=== PATIENT | female | born 1955 | race Caucasian/White ===

== ENCOUNTER → 2017-03-28 | Outpatient (CLI) | payer OTHER ==
[2017-03-28 08:42] LABS: ALT 35 U/L (9-52); AST 39 U/L (14-36); Alkaline Phosphatase 104 U/L (38-126); Anion Gap 8 mmol/L; Blood Urea Nitrogen 18 mg/dL (7-17); Calcium 9.1 mg/dL (8.4-10.2); Carbon Dioxide 26 mmol/L (22-30); Chloride 110 mmol/L (98-107); Cholesterol 136 mg/dL (<200); Glucose 102 mg/dL (74-99); HDL Cholesterol 44 mg/dL (40-60); Non-African American GFR(MDRD) >60 (>60 ml/min/1.73 sqM); Potassium 4.6 mmol/L (3.5-5.1); Sodium 144 mmol/L (137-145); Total Bilirubin 0.6 mg/dL (0.2-1.3); Total Protein 7.3 g/dL (6.3-8.2); Triglycerides 75 mg/dL (<150)
[2017-03-28 09:27] LABS: Basophils # (A) 0.1 k/uL (0-0.2); Basophils % (A) 1 %; CH 31.1; Eosinophils # (A) 0.3 k/uL (0-0.7); Eosinophils % (A) 5 %; HCT 42.8 % (34.0-46.0); HDW 2.91; HGB 14.7 gm/dL (11.4-16.0); Luc # (Auto) 0.24; Luc % (Auto) 4; Lymphocytes # (A) 0.9 k/uL (1.0-4.8); Lymphocytes % (A) 15 %; MCH 30.7 pg (25.0-35.0); MCHC 34.3 g/dL (31.0-37.0); MCV 89.4 fL (80.0-100.0); Mean Platelet Volume 7.4; Monocytes # (A) 0.5 k/uL (0-1.0); Monocytes % (A) 9 %; Neutrophils # (A) 3.8 k/uL (1.3-7.7); Neutrophils % (A) 65 %; RBC 4.79 m/uL (3.80-5.40); RDW 13.2 % (11.5-15.5); WBC 5.8 k/uL (3.8-10.6); WBC (Perox) 5.89
== END | disposition home or self-care (01) ==
LOC: LABWHC1 08:04
PROVIDERS: ATTEND Internal Medicine
DX: Z00.00 Encounter for general adult medical examination without abnormal findings (principal); D86.0 Sarcoidosis of lung; I10 Essential (primary) hypertension; K21.9 Gastro-esophageal reflux disease without esophagitis; R05 Cough; Z80.0 Family history of malignant neoplasm of digestive organs
CPT/HCPCS: 36415; 80053; 80061; 84439; 84443; 85025

== ENCOUNTER → 2017-12-06 | Outpatient (CLI) | payer OTHER ==
--- NOTE | 2017-12-10 09:01 | MM ---
Reason for exam: screening (asymptomatic). Last mammogram was performed 1 year and 1 month ago. History: Patient is postmenopausal. Physical Findings: A clinical breast exam by your physician is recommended on an annual basis and results should be correlated with mammographic findings. MG Screening Mammo w CAD Bilateral CC and MLO view(s) were taken. Prior study comparison: November 12, 2016, bilateral MG screening mammo w CAD. November 08, 2015, bilateral MG 3d screening mammo w/cad. The breast tissue is almost entirely fat. No significant changes when compared with prior studies. ASSESSMENT: Negative, BI-RAD 1 RECOMMENDATION: Routine screening mammogram of both breasts in 1 year.
== END | disposition home or self-care (01) ==
LOC: RADMAMWWP 14:24
PROVIDERS: ATTEND Internal Medicine
DX: Z12.31 Encounter for screening mammogram for malignant neoplasm of breast (principal)
CPT/HCPCS: 77067

== ENCOUNTER → 2018-04-07 | Outpatient (CLI) | payer OTHER ==
[2018-04-07 07:37] LABS: Basophils % (A) 1 %; Eosinophils # (A) 0.4 k/uL (0-0.7); Eosinophils % (A) 6 %; HCT 41.2 % (34.0-46.0); HGB 14.6 gm/dL (11.4-16.0); Lymphocytes # (A) 0.7 k/uL (1.0-4.8); Lymphocytes % (A) 10 %; MCH 30.9 pg (25.0-35.0); MCHC 35.4 g/dL (31.0-37.0); MCV 87.3 fL (80.0-100.0); Mean Platelet Volume 7.1; Monocytes # (A) 0.5 k/uL (0-1.0); Monocytes % (A) 8 %; Neutrophils # (A) 4.9 k/uL (1.3-7.7); Neutrophils % (A) 72 %; Platelet Count 205 k/uL (150-450); RBC 4.72 m/uL (3.80-5.40); RDW 13.3 % (11.5-15.5); WBC 6.8 k/uL (3.8-10.6)
[2018-04-07 07:59] LABS: ALT 36 U/L (9-52); AST 33 U/L (14-36); Alkaline Phosphatase 110 U/L (38-126); Anion Gap 12 mmol/L; Blood Urea Nitrogen 19 mg/dL (7-17); Calcium 9.2 mg/dL (8.4-10.2); Carbon Dioxide 28 mmol/L (22-30); Chloride 104 mmol/L (98-107); Cholesterol 164 mg/dL (<200); Glucose 96 mg/dL (74-99); HDL Cholesterol 49 mg/dL (40-60); LDL Cholesterol,Calculated 96 mg/dL (0-99); Potassium 4.5 mmol/L (3.5-5.1); Sodium 144 mmol/L (137-145); Total Bilirubin 0.7 mg/dL (0.2-1.3); Total Protein 6.6 g/dL (6.3-8.2); Triglycerides 93 mg/dL (<150)
[2018-04-07 08:04] LABS: T4, Free (Free Thyroxine) 1.03 ng/dL (0.78-2.19)
== END | disposition home or self-care (01) ==
LOC: LABWHC1 06:50
PROVIDERS: ATTEND Internal Medicine
DX: E78.5 Hyperlipidemia, unspecified (principal); I10 Essential (primary) hypertension
CPT/HCPCS: 36415; 80053; 80061; 84439; 84443; 85025

== ENCOUNTER → 2018-10-09 | Outpatient (CLI) | payer OTHER ==
--- NOTE | 2018-10-09 12:19 | CT ---
EXAMINATION TYPE: CT angio head DATE OF EXAM: 10/09/2018 HISTORY: Family history of aneurysm COMPARISON: NONE CT DLP: 1429.4 mGycm. Automated Exposure Control for Dose Reduction was Utilized. TECHNIQUE: CTA scan of the neck is performed without and with IV Contrast, patient injected with 100 mL of Isovue 370, axial images are obtained, coronal and sagittal reformatted images are reviewed. T hree-D reconstructed images are created on an independent workstation and reviewed. FINDINGS: Carotid/Vascular Structures: The left vertebral artery is dominant. Basilar artery is unremarkable. T here is a small saccular aneurysm of the horizontal M1 segment of the right internal carotid artery v ersus prominent infundibulum of a branch of the lenticulostriate arteries although this appears more pronounced than on the left particularly on image 18 of series 6. There is also a small saccular aneurysmal outpouching from the posterior inferior cerebellar artery m easuring 2 mm on series 6 image 15. Left posterior communicating artery appears diminutive. 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 No arterial ve nous malformation is seen. Other: There is prominence of the peripheral sulci and ventricular system compatible with age-related volume loss, overall mild in degree. Visualized paranasal sinuses and mastoid air cells are well aer ated. Exam is not optimized for evaluation of intracranial parenchyma. 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 [place] appears incomplete.
== END | disposition home or self-care (01) ==
LOC: RADCTMAIN 10:35
PROVIDERS: ATTEND Internal Medicine
DX: I67.1 Cerebral aneurysm, nonruptured (principal); Z82.49 Family history of ischemic heart disease and other diseases of the circulatory system; Z88.0 Allergy status to penicillin; Z88.1 Allergy status to other antibiotic agents; Z88.2 Allergy status to sulfonamides; Z88.5 Allergy status to narcotic agent
CPT/HCPCS: 70496; Q9967

== ENCOUNTER → 2018-12-31 | Outpatient (CLI) | payer OTHER ==
--- NOTE | 2019-01-01 11:00 | MM ---
Reason for exam: screening (asymptomatic). Last mammogram was performed 1 year and 1 month ago. History: Patient is postmenopausal. Physical Findings: A clinical breast exam by your physician is recommended on an annual basis and results should be correlated with mammographic findings. MG Screening Mammo w CAD Bilateral CC and MLO view(s) were taken. Prior study comparison: December 06, 2017, bilateral MG screening mammo w CAD. November 12, 2016, bilateral MG screening mammo w CAD. There are scattered fibroglandular densities. No significant changes when compared with prior studies. ASSESSMENT: Benign, BI-RAD 2 RECOMMENDATION: Routine screening mammogram of both breasts in 1 year.
== END | disposition home or self-care (01) ==
LOC: RADMAMWWP 14:06
PROVIDERS: ATTEND Internal Medicine
DX: Z12.31 Encounter for screening mammogram for malignant neoplasm of breast (principal)
CPT/HCPCS: 77067

== ENCOUNTER → 2019-02-07 | Outpatient (CLI) | payer OTHER ==
[2019-02-07 08:49] LABS: Basophils # (A) 0.1 k/uL (0-0.2); Basophils % (A) 1 %; Eosinophils # (A) 0.3 k/uL (0-0.7); Eosinophils % (A) 5 %; HCT 42.1 % (34.0-46.0); HGB 13.8 gm/dL (11.4-16.0); Lymphocytes # (A) 0.6 k/uL (1.0-4.8); Lymphocytes % (A) 12 %; MCHC 32.9 g/dL (31.0-37.0); MCV 91.4 fL (80.0-100.0); Mean Platelet Volume 6.9; Monocytes # (A) 0.5 k/uL (0-1.0); Monocytes % (A) 9 %; Neutrophils # (A) 3.3 k/uL (1.3-7.7); Neutrophils % (A) 69 %; Platelet Count 210 k/uL (150-450); RBC 4.61 m/uL (3.80-5.40); RDW 13.3 % (11.5-15.5); WBC 4.8 k/uL (3.8-10.6)
[2019-02-07 08:57] LABS: Appearance,Urine Clear (Clear); Bacteria,Urine Rare /hpf; Bilirubin,Urine Negative (Negative); Blood,Urine Negative (Negative); Color,Urine Yellow; Glucose,Urine (UA) Negative (Negative); Ketones,Urine Negative (Negative); Leukocyte Esterase,Urine Large (Negative); Mucus,Urine Moderate /hpf; Nitrite,Urine Negative (Negative); PH, Urine 5.5 (5.0-8.0); Protein,Urine Negative (Negative); Squamous Epithelial Cell,Urine 5 /hpf (0-4); Urobilinogen,Urine <2.0 mg/dL (<2.0); WBC,Urine 18 /hpf (0-5)
[2019-02-07 11:25] LABS: Erythrocyte Sedimentation Rate 24 mm/hr (0-20)
[2019-02-07 16:32] LABS: Anion Gap 2.5 mmol/L (4.00-12.00); Calcium 9.1 mg/dL (8.7-10.3); Carbon Dioxide 31.5 mmol/L (21.6-31.8); Potassium 5.1 mmol/L (3.5-5.5)
== END | disposition home or self-care (01) ==
LOC: LABWHC1 08:08
PROVIDERS: ATTEND Internal Medicine
DX: R10.31 Right lower quadrant pain (principal)
CPT/HCPCS: 36415; 80048; 81001; 85025; 85652; 87086

== ENCOUNTER → 2019-02-24 | Outpatient (CLI) | payer MEDICARE ==
--- NOTE | 2019-02-25 09:10 | CT ---
EXAMINATION TYPE: CT abdomen pelvis w con DATE OF EXAM: 02/24/2019 COMPARISON: None INDICATION: RLQ pain chronic DLP: 1836.30 mGycm, Automated exposure control for dose reduction was used. CONTRAST: 100 mL of Isovue 300. Study performed with Oral Contrast TECHNIQUE: Axial images were obtained from above the diaphragm to the pubic rami in the axial plane a t 5 mm thick sections. Reconstructed images are reviewed on the computer in the coronal plane. FINDINGS: Limited CT sections are obtained the lung bases. There is a 0.4 cm nodular density within the right middle lobe. Series 3 image 3. There appear to be small calcifications in the infrahilar regions negrita aterally within the [id number]. Paraesophageal present enlarged measuring 1.2 cm. Series 2 image 1 0 and additional 1.0 cm lymph node is above the diaphragm. Series 2 image 13. Esophageal region. Esop hagus appears normal within the [id number]. CT ABDOMEN: Liver: Normal Spleen: Normal Pancreas: Normal Adrenal glands: The adrenal glands are normal. Gallbladder: Surgically absent Kidneys: No masses are evident. No hydronephrosis is present. No cysts are present. Delayed images were obtained through the kidneys, which remain unremarkable. Aorta: Vascular calcification is within the aorta. Inferior vena cava: Normal. CT PELVIS: Loops of bowel within the abdomen and pelvis are normal. There are loops of bowel which are incom pletely distended or lack oral contrast limiting their evaluation. Appendix: Normal as visualized. Some contrast within the proximal appendix. Urinary bladder: Normal. Genitourinary structures: Prostate is slightly prominent Osseous structures: No suspicious lytic or sclerotic lesions. Facet degenerative changes and hypertro phy are present L4-5 L3-4 IMPRESSIONS: 1. Tiny nodule right middle lobe lung base. 2. Esophageal lymphadenopathy appears to be present. 3. Additional evaluation with CT chest is recommended. A Yellow level critical message alert has been initiated for Evelia Reed MD~[id number] via the [employer] Critical Results System on 02/25/2019 9:07 AM. This message alert has been sent to Evelia Reed MD~[id number] via the preferences provided by the clinician for the receipt of Radiology Critical Findings . Message ID [id number].
--- NOTE | 2019-02-25 09:16 | CT ---
EXAMINATION TYPE: CT lumbar spine wo con DATE OF EXAM: 02/24/2019 COMPARISON: None HISTORY: lower lumbar/sacral pain CT DLP: 1836.30 mGycm CONTRAST: None TECHNIQUE: CT of the lumbar spine is performed on a spiral scan at 3 mm thick sections. Reconstructed images are performed in the coronal and sagittal planes. FINDINGS: T12-L1: No focal disc herniation or significant disc bulge is evident. No spinal canal stenosis or neural foraminal stenosis is present. L1-L2: No focal disc herniation or significant disc bulge is evident. No spinal canal stenosis or n eural foraminal stenosis is present L2-L3: No focal disc herniation or significant disc bulge is evident. No spinal canal stenosis or n eural foraminal stenosis is present L3-L4: Disc bulge is present. This may be slightly greater into the left paracentral region. Moderate anterior thecal sac compression is present. Some canal narrowing may be present. Mild facet hypertro phy is present. Neural foramen are patent. L4-L5: There is a grade 1 spondylolisthesis of L4 anterior on L5. Disc uncovering has moderate anteri or thecal sac compression. Marked facet hypertrophy is present with posterior lateral thecal sac comp ression. Some spinal canal stenosis through this level may be present. L5-S1: Broad-based disc bulge is present which may have mild anterior thecal sac contact. Facet hyper trophy is present. No spinal canal stenosis is present. Mild left and right foraminal narrowing may b e present. IMPRESSION: 1. Grade 1 spondylolisthesis of L4 anterior and L5. 2. Discussed with covering and facet hypertrophy is contributing to spinal canal stenosis at the L4-5 level. 3. Disc bulging L3-4 and L5-S1. This is slightly greater at L3-4 and into the left paracentral region at this level with moderate anterior thecal sac compression.
== END | disposition home or self-care (01) ==
LOC: RADCTMAIN 15:23
PROVIDERS: ATTEND Internal Medicine
DX: M48.061 Spinal stenosis, lumbar region without neurogenic claudication (principal); M43.16 Spondylolisthesis, lumbar region; M51.06 Intervertebral disc disorders with myelopathy, lumbar region; R10.31 Right lower quadrant pain
CPT/HCPCS: 72131; 74177; Q9967

== ENCOUNTER → 2019-03-10 | Outpatient (CLI) | payer MEDICARE ==
--- NOTE | 2019-03-10 16:33 | CT ---
EXAMINATION TYPE: CT chest w con DATE OF EXAM: 03/10/2019 COMPARISON: 02/24/2019, 04/30/[address] of 08/19/2012 HISTORY: Abnormal lung findings on A/P scan CT DLP: 673 mGycm. Automated Exposure Control for Dose Reduction was Utilized. TECHNIQUE: CT scan of the thorax is performed following with IV Contrast, patient injected with 100 mL of Isovue 300. FINDINGS: LUNGS: There are too numerous to count micronodular is that are subpleural in location as seen on the prior of 04/30/2016. There are also scattered sub-4 mm pulmonary nodules throughout the largest marked on the images. The majority of these are stable from 04/30/2016 such as within the right upper lobe on series 4 image 23 and 24. A right middle lobe pulmonary nodule has slightly increased in size in florentino ge 25 measuring 3 mm and previously measuring 2 mm. The left-sided pulmonary nodules are also stable the largest measuring 5 mm on series 4 image 21. On the exam of 04/30/2016 these are compared to 012 and stable at that time. MEDIASTINUM: There remains mediastinal adenopathy and paraesophageal adenopathy as seen on the prior of 05/10/2019. Some of these lymph nodes contain calcified granulomas. The largest is in the subcarina l space measuring 1.8 cm in short axis, unchanged from 2016. OTHER: Moderate grade hepatic steatosis limits evaluation for hepatic masses. Gallbladder surgically absent. Spleen is prominent in size. Moderate degenerative change of the visualized spine is present IMPRESSION: Numerous bilateral pulmonary nodules and mediastinal adenopathy as well as paraesophageal adenopathy are similar to exam of 04/30/2016 on the exam of 2011. Therefore it is unlikely these findi ngs are neoplastic. Consideration is for sarcoid, inflammatory etiology or granulomatous disease. Mod erate hepatic steatosis is also again seen.
== END ==
LOC: RADCTMAIN 13:55
PROVIDERS: ATTEND Internal Medicine
DX: R91.8 Other nonspecific abnormal finding of lung field (principal); R59.1 Generalized enlarged lymph nodes
CPT/HCPCS: 71260; Q9967

== ENCOUNTER → 2019-03-11 | Outpatient (CLI) | payer MEDICARE ==
[2019-03-11 08:55] VITALS: BP 137/72; PULSE 73; RESP 18; TEMP 96.7; BMI 41.8
--- NOTE | 2019-03-11 09:43 | P.HPOB ---
History of Present Illness H&P Date: 03/11/19 Chief Complaint: The patient is here for her routine gynecologic exam. This is a 63-year-old within LMP of 1997. The patient is here to establish with the office. She is status post DARLYN BSO for benign reasons. The patient is without gynecologic complaints. She states it has been about 18 years since her last pelvic exam. CT of abdomen and pelvis done earlier this month showed a fullness in the vaginal vault. Review of Systems Her weight has been stable. She denies respiratory or cardiac problems. G.I.: occasional gastric reflux. Past Medical History Past Medical History: GERD/Reflux, Hypertension Additional Past Medical History / Comment(s): Glaucoma,Sarcoidosis. 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 DARLYN BSO done for benign bleeding. History of Any Multi-Drug Resistant Organisms: None Reported Past Surgical History: Cholecystectomy, Hysterectomy Additional Past Surgical History / Comment(s): Mediastinoscopy. DARLYN BSO 1997. Colonoscopy 2013(3rd). Past Psychological History: No Psychological Hx Reported Smoking Status: Former smoker Past Drug Use History: None Reported Additional History: Quit smoking in 1979. She is single and is not seeing anybody at this time. 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 - Past Family History Mother Family Medical History: Cancer, Diabetes Mellitus Additional Family Medical History / Comment(s): Colon cancer. Sister(s) Family Medical History: Diabetes Mellitus Father Family Medical History: Cancer Additional Family Medical History / Comment(s): Prostate in the bladder cancer. Brother(s) Family Medical History: Cancer Additional Family Medical History / Comment(s): Prostate cancer. Medications and Allergies Home Medications Medication Instructions Recorded Confirmed Type Aspirin 81 mg PO DAILY 05/19/14 03/11/19 History Metoprolol Succinate (ER) [Toprol 100 mg PO DAILY 05/19/14 03/11/19 History XL] Omeprazole [PriLOSEC] 20 mg PO AC-BRKFST 05/19/14 03/11/19 History Bimatoprost [Lumigan .01% Ophth 0.05 BOTH EYES DAILY 03/11/19 History Soln] Losartan Potassium 50 mg PO DAILY 03/11/19 03/11/19 History Timolol [Betimol 0.5% Ophth Soln] 1 drop BOTH EYES BID 03/11/19 03/11/19 History Allergies Allergy/AdvReac Type Severity Reaction Status Date / Time levofloxacin [From Levaquin] Allergy Rash/Hives, Verified 03/11/19 08:29 headache meperidine HCl [From Demerol] Allergy Rash/Hives Verified 03/11/19 08:29 Penicillins Allergy Rash/Hives Verified 03/11/19 08:29 Sulfa (Sulfonamide Allergy Rash/Hives Verified 03/11/19 08:29 Antibiotics) sulfamethoxazole Allergy Rash/Hives Verified 03/11/19 08:29 [From Bactrim] trimethoprim [From Bactrim] Allergy Rash/Hives Verified 03/11/19 08:29 Exam Vital Signs Temp Pulse Resp BP Pulse Ox 03/11/19 08:47 96.7 F L 73 18 137/72 98 Intake and Output 03/10/19 03/11/19 03/11/19 22:59 06:59 14:59 Other: Weight 107.048 kg Height 5'3", weight 236 pounds, BMI 41.8. This is a well-developed well-nourished heavyset white female who is alert and oriented times 3 in no acute distress. HEENT: Within normal limits. NECK: Supple without mass or thyromegaly. CHEST AND LUNGS: Clear to auscultation. HEART: Regular rate and rhythm. BREASTS: Are without mass or discharge. AXILLARY EXAM: Negative for adenopathy. BACK: Negative for CVA tenderness. ABDOMEN: Soft, obese, nontender, without palpable masses. PELVIC EXAM: External genitalia appears normal with mild atrophy. Vagina appears normal mild atrophy. There is a grade one cystocele at rest. There is a grade 1 to 2 cystocele and grade 1 to 2 enterocele with Valsalva.. Bimanual examination is negative for mass or tenderness. RECTAL EXAM: Rectovaginal exam is negative for mass or tenderness and is negative for occult blood. EXTREMITIES: Nontender. IMPRESSION: 1. 63-year-old menopausal female status post DARLYN BSO for benign reasons. 2. Small cystocele and enterocele, both considered grade 1 to 2 with Valsalva. This probably would explain the CT finding of fullness in the vaginal vault. PLAN: 1. Pap smears have been discontinued. 2. Self breast awareness was discussed with the patient. 3. Screening mammogram was done on 12/31/2018 and was benign. She will repeat this in one year. 4. Osteoporosis prevention was discussed. I have stressed the importance of adequate calcium, vitamin D and regular exercise. Recommended amounts of calcium and vitamin D were also discussed. I have recommended bone density test since it's been about 10 years since her last one. The order slip was given to the patient for this. 5. The patient is asymptomatic from the small cystocele and rectocele. This will be followed conservatively. She is to avoid holding urine too long. 5. She was advised to return in one year for her annual well woman exam.
== END ==
LOC: WWCWWP 08:12
PROVIDERS: ATTEND Obstetrics & Gynecology
DX: Z53.9 Procedure and treatment not carried out, unspecified reason (principal)

== ENCOUNTER → 2019-03-30 | Outpatient (CLI) | payer MEDICARE ==
[2019-03-30 09:28] LABS: Basophils # (A) 0.1 k/uL (0-0.2); Basophils % (A) 1 %; Eosinophils # (A) 0.4 k/uL (0-0.7); Eosinophils % (A) 6 %; HCT 43.3 % (34.0-46.0); HGB 14.2 gm/dL (11.4-16.0); Lymphocytes # (A) 0.6 k/uL (1.0-4.8); Lymphocytes % (A) 10 %; MCH 30.3 pg (25.0-35.0); MCHC 32.8 g/dL (31.0-37.0); MCV 92.6 fL (80.0-100.0); Mean Platelet Volume 7.1; Monocytes # (A) 0.5 k/uL (0-1.0); Monocytes % (A) 7 %; Neutrophils # (A) 4.6 k/uL (1.3-7.7); Neutrophils % (A) 71 %; Platelet Count 211 k/uL (150-450); RBC 4.68 m/uL (3.80-5.40); RDW 13.6 % (11.5-15.5); WBC 6.4 k/uL (3.8-10.6)
[2019-03-30 17:26] LABS: T4, Free (Free Thyroxine) 1.2 ng/dL (0.80-1.80)
[2019-03-30 17:31] LABS: Albumin 4.3 g/dL (3.80-4.90); Albumin/Globulin Ratio 2.15 (1.60-3.17); Anion Gap 7.2 mmol/L (4.00-12.00); Carbon Dioxide 26.8 mmol/L (21.6-31.8); Potassium 4.5 mmol/L (3.5-5.5); Total Bilirubin 0.9 mg/dL (0.2-1.2); Total Protein 6.3 g/dL (6.2-8.2)
== END | disposition home or self-care (01) ==
LOC: LABWHC1 08:23
PROVIDERS: ATTEND Internal Medicine
DX: Z00.00 Encounter for general adult medical examination without abnormal findings (principal); E78.5 Hyperlipidemia, unspecified; I10 Essential (primary) hypertension
CPT/HCPCS: 36415; 80053; 80061; 84439; 84443; 85025

== ENCOUNTER → 2019-03-30 | Outpatient (CLI) | payer MEDICARE ==
--- NOTE | 2019-03-30 13:16 | BD ---
EXAMINATION TYPE: Axial Bone Density DATE OF EXAM: 03/30/2019 COMPARISON: 05.25.2010 CLINICAL HISTORY: 64 YR OLD FEMALE....ICD-10 CODE: Z78.0 POST MENOPAUSAL Height: 62 Weight: 233 FRAX RISK QUESTIONS: Secondary Osteoporosis: YES 3. Menopause before 45: YES RISK FACTORS HISTORY OF: Postmenopausal woman: TOTAL HYST AT AGE 43 YRS OLD Take estrogen and/or progesterone medications: IN PAST FOR ONLY SHORT TIME MEDICATIONS: Additional Medications: BP MED, REFLUX MEDS Additional History: HYPERTENSION EXAM MEASUREMENTS: Bone mineral densitometry was performed using the [employer] System. Bone mineral density as measured about the Lumbar spine is: ----- L1-L4(G/cm2): 1.276 T Score Values are as follows: ----- L1: 0.6 ----- L2: 0.0 ----- L3: 0.8 ----- L4: 1.6 ----- L1-L4: 0.8 Bone mineral density has: Increased 2.9% since study of: 05.25.2010 Bone mineral density about the R hip (g/cm2): 1.012 Bone mineral density about the L hip (g/cm2): 1.015 T Score values are as follows: -----R Neck: -0.8 -----L Neck: -1.0 -----R Total: 0.0 -----L Total: 0.1 Bone mineral density has: Decreased -2.8% since study of: 05.25.2010 FRAX%s: THERE IS A 6.8% CHANCE FOR A MAJOR OSTEOPOROTIC FX AND A 0.4% FOR HIP.....PROBABILITY OF FX IN 10 YRS TIME IMPRESSION: No evidence for osteoporosis or osteopenia. NOTE: T-SCORE=SD OF THE YOUNG ADULT MEAN.
== END | disposition home or self-care (01) ==
LOC: RADBDWWP 07:38
PROVIDERS: ATTEND Obstetrics & Gynecology
DX: Z78.0 Asymptomatic menopausal state (principal)
CPT/HCPCS: 77080

== ENCOUNTER 2019-07-31 08:57 | Day surgery (SDC) | payer MEDICARE ==
[2019-07-29 11:53] VITALS: BMI 38.9
[~2019-07-31 08:57] MED LIST: LACTATED RINGERS 1,000 ML IV SCH; LIDOCAINE 1% 20 ML VIAL (10MG/ML) FOR IV START INTRADERMA PRN
[2019-07-31 10:12] VITALS: RESP 16; TEMP 97.8
[2019-07-31] MEDS ORDERED: PROPOFOL 10 MG/ML 20 ML VIAL IV ONE (10:45)
[2019-07-31] MEDS ORDERED: LIDOCAINE 1% INJ 10MG/ML (20 ML MDV) ONE (10:45)
--- NOTE | 2019-07-31 11:04 | P.PCN ---
Date of Procedure: 07/31/19 Procedure(s) Performed: Brief history: Patient is a pleasant 64-year-old white female, scheduled for an elective upper endoscopy as well as colonoscopy as a part of evaluation of long-standing history of GERD/screening for colorectal neoplasia Procedure performed: Esophagogastroduodenoscopy with biopsy Colonoscopy Preoperative diagnosis: GERD Screening for colon cancer Anesthesia: MAC Procedure: After informed consent was obtained from the patient was brought into the endoscopy unit and IV sedation was administered by anesthesia under continuous monitoring. Initially upper endoscopy was done. The Olympus GF 160 video endoscope was inserted inserted into the mouth and esophagus intubated without any difficulty and was gradually advanced into the stomach and duodenum and carefully examined. The bulb and second part of the duodenum appeared normal. The scope was then withdrawn into the stomach adequately insufflated with air and upon careful examination the antrum mild gastritis and biopsies were done from this area. The body, cardia and fundus appeared normal. The scope was then withdrawn into the esophagus. The GE junction was located at 40 cm to the incisors. It appeared regular with no erythema erosions or ulcerations. Rest of the esophagus appeared normal. Patient tolerated the procedure well. At this time the patient continued to remain sedation. Initial digital rectal examination was normal. Olympus CF 160 video colonoscope was then inserted into the rectum and gradually advanced to the cecum without any difficulty. Careful examination was performed as the scope was gradually being withdrawn. The prep was excellent. The cecum, ascending colon, transverse colon, descending colon, sigmoid colon and rectum appeared normal. Retroflexion was performed in the rectum and no lesions were noted. Patient tolerated the procedure well. Impression: 1. Upper endoscopy revealed mild antral gastritis but no evidence of esophagitis or Tompkins's esophagus 2. Colonoscopy was essentially within normal limits. Recommendations: Findings of this examination were discussed with the patient as well as her family. She was advised to follow with the biopsy results. She will continue with Prilosec 20 mg daily and follow antireflux measures. She can have a repeat screening colonoscopy in 10 years
[2019-07-31 11:19] VITALS: BP 117/56; PULSE 72
== END 2019-07-31 11:42 | disposition home or self-care (01) ==
LOC: ORWHC2ENDO 08:57
PROVIDERS: ATTEND Internal Medicine Gastroenterology
DX: Z12.11 Encounter for screening for malignant neoplasm of colon (principal); K29.50 Unspecified chronic gastritis without bleeding; K21.9 Gastro-esophageal reflux disease without esophagitis; Z87.891 Personal history of nicotine dependence; Z79.82 Long term (current) use of aspirin; Z79.899 Other long term (current) drug therapy; H40.9 Unspecified glaucoma; Z88.1 Allergy status to other antibiotic agents; Z88.5 Allergy status to narcotic agent; Z88.0 Allergy status to penicillin; Z88.2 Allergy status to sulfonamides; Z88.8 Allergy status to other drugs, medicaments and biological substances
CPT/HCPCS: 88305; 43239; J2001; J2704; G0121

== ENCOUNTER → 2019-09-10 | Outpatient (CLI) | payer MEDICARE ==
[2019-09-10 19:06] LABS: Appearance,Urine Cloudy (Clear); Bacteria,Urine Rare /hpf; Bilirubin,Urine Negative (Negative); Blood,Urine Negative (Negative); Color,Urine Yellow; Glucose,Urine (UA) Negative (Negative); Ketones,Urine Trace (Negative); Leukocyte Esterase,Urine Negative (Negative); Mucus,Urine Moderate /hpf; Nitrite,Urine Negative (Negative); PH, Urine 5.5 (5.0-8.0); Protein,Urine Trace (Negative); RBC,Urine 1 /hpf (0-5); Specific Gravity,Urine 1.028 (1.001-1.035); Squamous Epithelial Cell,Urine 6 /hpf (0-4); WBC,Urine 3 /hpf (0-5)
== END | disposition home or self-care (01) ==
LOC: LABWHC1 16:45
PROVIDERS: ATTEND Internal Medicine
DX: N39.0 Urinary tract infection, site not specified (principal)
CPT/HCPCS: 81001; 87086

== ENCOUNTER 2020-03-11 14:35 | Emergency (ER) | payer MEDICARE ==
[2020-03-11] MEDS ORDERED: ONDANSETRON 4 MG/2 ML VIAL IVP STA (15:15)
[2020-03-11] MEDS ORDERED: KETOROLAC 30 MG/ML 1 ML VIAL IVP STA (15:15)
[2020-03-11] MEDS ORDERED: SODIUM CHLORIDE 0.9% 1,000 ML IV STA (15:15)
[2020-03-11] MEDS ORDERED: diphenhydrAMINE 50 MG/ML 1 ML VIAL IVP STA (15:15)
--- NOTE | 2020-03-11 15:21 | ED ---
General Adult HPI - General Chief complaint: Headache Stated complaint: Migraine Time Seen by Provider: 03/11/20 14:59 Source: patient Mode of arrival: ambulatory Limitations: no limitations - History of Present Illness Initial comments: Dictation was produced using [employer] dictation software. please excuse any grammatical, word or spelling errors. This patient was cared for during a federal and state declared state of emergency secondary to Covid 19 Chief Complaint: 64-year-old female with past medical history of frequent migraines, GERD, hypertension presents with increased frequency of migraines. History of Present Illness: A 64-year-old female she has past medical history of migraines. Patient states her usual frequency of migraine is once a month. She states that over the last week she's had 3 migraine episodes last week. She was concerned that the increased frequency was concerning. She decided come to the emergency department to be evaluated. Patient states she has a history of migraines. The migraines that she expressed last week were typical for her usual migraines. She states that they start with bilateral visual auras. She reports that she sees squiggly lines in her vision. States that these visual changes occur for approximately 15 minutes and go away. Simultaneously she gets a dull headache to her right frontal area. Patient has been evaluated by neurology in the past. She has had cerebral angiograms that did not demonstrate any aneurysms. She does have fibromuscular dysplasia seen in the brain parenchyma. Patient denies any fever, chills or night sweats. She states she's been under more stress than usual last week secondary to her jaw. States she's been eating well. She denies any jaw claudication. No visual loss The ROS documented in this emergency department record has been reviewed and confirmed by me. Those systems with pertinent positive or negative responses have been documented in the HPI. All other systems are other negative and/or noncontributory. PHYSICAL EXAM: General Impression: Alert and oriented x3, not in acute distress HEENT: Normocephalic atraumatic, extra-ocular movements intact, pupils equal and reactive to light bilaterally, mucous membranes moist. Cardiovascular: Heart regular rate and rhythm Chest: Able to complete full sentences, no retractions, no tachypnea Abdomen: Bowel sounds present, abdomen soft, non-tender, non-distended, no organomegaly Musculoskeletal: Pulses present and equal in all extremities, no peripheral edema Motor: no focal deficits noted Neurological: CN II-XII grossly intact, no focal motor or sensory deficits noted, no ataxia, no drift, no dysdiadochokinesia, non-aphasic, no tenderness to palpation over the superficial temporal artery Skin: Intact with no visualized rashes Psych: Normal affect and mood ED course: 64-year-old female with past medical history of migraines is here today for evaluation. Her chief complaint is she is having increased frequency of migraines with last week. She does report having been under more stress than usual. Patient has benign neurologic exam. She denies any visual changes currently. She does complain of a dull headache which feels like her usual headache. Vital signs upon arrival are within acceptable limits. Lavatory evaluation obtained. Labs are unremarkable. Patient reevaluated at bedside after administration of headache cocktail with clinical improvement. Patient feels well. She is strongly advised to follow up with her neurologist or headache doctor. At this point there is no indication for any further workup considering patient reports that this is her usual headache albeit it is occurring at increased frequency. Patient is understandable agreeable disposition. Patient counseled on avoidance of migraine triggers. Return parameters discussed. - Related Data Home Medications Medication Instructions Recorded Confirmed Aspirin 81 mg PO DAILY 05/19/14 07/31/19 Metoprolol Succinate (ER) [Toprol 100 mg PO DAILY 05/19/14 07/31/19 XL] Omeprazole [PriLOSEC] 20 mg PO AC-BRKFST 05/19/14 07/31/19 Bimatoprost [Lumigan .01% Ophth 1 drop BOTH EYES DAILY 03/11/19 07/31/19 Soln] Losartan Potassium 50 mg PO DAILY 03/11/19 07/31/19 Timolol [Betimol 0.5% Ophth Soln] 1 drop BOTH EYES BID 03/11/19 07/31/19 Allergies Allergy/AdvReac Type Severity Reaction Status Date / Time levofloxacin [From Levaquin] Allergy Rash/Hives, Verified 03/11/20 14:45 headache meperidine HCl [From Demerol] Allergy Rash/Hives Verified 03/11/20 14:45 Penicillins Allergy Rash/Hives Verified 03/11/20 14:45 Sulfa (Sulfonamide Allergy Rash/Hives Verified 03/11/20 14:45 Antibiotics) sulfamethoxazole Allergy Rash/Hives Verified 03/11/20 14:45 [From Bactrim] trimethoprim [From Bactrim] Allergy Rash/Hives Verified 03/11/20 14:45 erythromycin base AdvReac Abdominal Verified 03/11/20 14:45 Pain Review of Systems ROS Statement: Those systems with pertinent positive or pertinent negative responses have been documented in the HPI. ROS Other: All systems not noted in ROS Statement are negative. Past Medical History Past Medical History: Eye Disorder, GERD/Reflux, Hypertension Additional Past Medical History / Comment(s): Glaucoma,Sarcoidosis. had brain angiogram 12/16/18-neg. for aneurysm. History of Any Multi-Drug Resistant Organisms: None Reported Past Surgical History: Cholecystectomy, Hysterectomy Additional Past Surgical History / Comment(s): Mediastinoscopy. DARLYN BSO 1997. Colonoscopy 2013(3rd). Past Anesthesia/Blood Transfusion Reactions: No Reported Reaction Past Psychological History: No Psychological Hx Reported Smoking Status: Former smoker Past Alcohol Use History: None Reported Past Drug Use History: None Reported - Past Family History Mother Family Medical History: Cancer, Diabetes Mellitus Additional Family Medical History / Comment(s): Colon cancer. Sister(s) Family Medical History: Diabetes Mellitus Father Family Medical History: Cancer Additional Family Medical History / Comment(s): Prostate in the bladder cancer. Brother(s) Family Medical History: Cancer Additional Family Medical History / Comment(s): Prostate cancer. General Exam Limitations: no limitations Course Vital Signs 03/11/20 14:43 Temperature 97.5 F L Pulse Rate 88 Respiratory 18 Rate Blood Pressure 174/92 O2 Sat by Pulse 99 Oximetry Medical Decision Making - Lab Data Result diagrams: 03/11/20 15:35 03/11/20 15:35 Lab Results 03/11/20 03/11/20 Range/Units 15:35 15:35 WBC 5.4 (3.8-10.6) k/uL RBC 4.75 (3.80-5.40) m/uL Hgb 14.5 (11.4-16.0) gm/dL Hct 42.3 (34.0-46.0) % MCV 89.0 (80.0-100.0) fL MCH 30.5 (25.0-35.0) pg MCHC 34.3 (31.0-37.0) g/dL RDW 13.1 (11.5-15.5) % Plt Count 208 (150-450) k/uL Neutrophils % 68 % Lymphocytes % 12 % Monocytes % 10 % Eosinophils % 5 % Basophils % 1 % Neutrophils # 3.7 (1.3-7.7) k/uL Lymphocytes # 0.7 L (1.0-4.8) k/uL Monocytes # 0.5 (0-1.0) k/uL Eosinophils # 0.3 (0-0.7) k/uL Basophils # 0.0 (0-0.2) k/uL Sodium 139 (137-145) mmol/L Potassium 3.8 (3.5-5.1) mmol/L Chloride 107 (98-107) mmol/L Carbon Dioxide 28 (22-30) mmol/L Anion Gap 4 mmol/L BUN 13 (7-17) mg/dL Creatinine 0.63 (0.52-1.04) mg/dL Est GFR (CKD-EPI)AfAm >90 (>60 ml/min/1.73 sqM) Est GFR (CKD-EPI)NonAf >90 (>60 ml/min/1.73 sqM) Glucose 106 H (74-99) mg/dL Calcium 9.0 (8.4-10.2) mg/dL Disposition Clinical Impression: Headache Disposition: HOME SELF-CARE Condition: Good Instructions (If sedation given, give patient instructions): Acute Headache (ED) Is patient prescribed a controlled substance at d/c from ED?: No Referrals: Hernan Ram MD [Medical Doctor] - 1-2 days Time of Disposition: 16:54
[2020-03-11 15:48] LABS: Basophils % (A) 1 %; Eosinophils # (A) 0.3 k/uL (0-0.7); Eosinophils % (A) 5 %; HCT 42.3 % (34.0-46.0); HGB 14.5 gm/dL (11.4-16.0); Lymphocytes # (A) 0.7 k/uL (1.0-4.8); Lymphocytes % (A) 12 %; MCH 30.5 pg (25.0-35.0); MCHC 34.3 g/dL (31.0-37.0); Mean Platelet Volume 7.4; Monocytes # (A) 0.5 k/uL (0-1.0); Monocytes % (A) 10 %; Neutrophils # (A) 3.7 k/uL (1.3-7.7); Neutrophils % (A) 68 %; Platelet Count 208 k/uL (150-450); RBC 4.75 m/uL (3.80-5.40); RDW 13.1 % (11.5-15.5); WBC 5.4 k/uL (3.8-10.6)
[2020-03-11 15:55] LABS: African American GFR (CKD) >90 (>60 ml/min/1.73 sqM); Anion Gap 4 mmol/L; Blood Urea Nitrogen 13 mg/dL (7-17); Carbon Dioxide 28 mmol/L (22-30); Chloride 107 mmol/L (98-107); Glucose 106 mg/dL (74-99); Non-African American GFR(CKD) >90 (>60 ml/min/1.73 sqM); Potassium 3.8 mmol/L (3.5-5.1); Sodium 139 mmol/L (137-145)
[2020-03-11 17:16] VITALS: BP 160/86; PULSE 81; RESP 20; TEMP 98.1
== END 2020-03-11 17:05 | disposition home or self-care (01) ==
LOC: EC 14:35
DX: G43.909 Migraine, unspecified, not intractable, without status migrainosus (principal); F43.9 Reaction to severe stress, unspecified; K21.9 Gastro-esophageal reflux disease without esophagitis; I10 Essential (primary) hypertension; H40.9 Unspecified glaucoma; Z79.82 Long term (current) use of aspirin; Z79.899 Other long term (current) drug therapy; Z88.1 Allergy status to other antibiotic agents; Z88.5 Allergy status to narcotic agent; Z88.0 Allergy status to penicillin; Z88.2 Allergy status to sulfonamides; Z87.891 Personal history of nicotine dependence
CPT/HCPCS: 36415; 93005; 80048; 85025; 99283; 96374; 96375 ×2; 96361; J1200; J2405; J1885

== ENCOUNTER → 2020-04-19 | Outpatient (CLI) | payer MEDICARE ==
--- NOTE | 2020-04-21 09:28 | MM ---
Reason for exam: screening (asymptomatic). Last mammogram was performed 1 year and 4 months ago. History: Patient is postmenopausal. Physical Findings: A clinical breast exam by your physician is recommended on an annual basis and results should be correlated with mammographic findings. MG 3D Screening Mammo W/Cad Bilateral CC and MLO view(s) were taken. Prior study comparison: December 31, 2018, bilateral MG screening mammo w CAD. December 06, 2017, bilateral MG screening mammo w CAD. There are scattered fibroglandular densities. There is no discrete abnormality. No significant changes when compared with prior studies. ASSESSMENT: Negative, BI-RAD 1 RECOMMENDATION: Routine screening mammogram of both breasts in 1 year.
== END | disposition home or self-care (01) ==
LOC: RADMAMWWP 07:31
PROVIDERS: ATTEND Internal Medicine
DX: Z12.31 Encounter for screening mammogram for malignant neoplasm of breast (principal)
CPT/HCPCS: 77063; 77067

== ENCOUNTER → 2020-05-13 | Outpatient (CLI) | payer MEDICARE ==
[2020-05-13 08:49] LABS: Basophils # (A) 0.1 k/uL (0-0.2); Basophils % (A) 1 %; Eosinophils # (A) 0.4 k/uL (0-0.7); Eosinophils % (A) 6 %; HCT 43.2 % (34.0-46.0); HGB 14.7 gm/dL (11.4-16.0); Lymphocytes # (A) 0.6 k/uL (1.0-4.8); Lymphocytes % (A) 10 %; MCH 31.6 pg (25.0-35.0); MCHC 34.2 g/dL (31.0-37.0); MCV 92.5 fL (80.0-100.0); Mean Platelet Volume 8.1; Monocytes # (A) 0.4 k/uL (0-1.0); Monocytes % (A) 7 %; Neutrophils # (A) 4.9 k/uL (1.3-7.7); Neutrophils % (A) 73 %; Platelet Count 209 k/uL (150-450); RBC 4.67 m/uL (3.80-5.40); RDW 12.7 % (11.5-15.5); WBC 6.7 k/uL (3.8-10.6)
[2020-05-13 17:53] LABS: T4, Free (Free Thyroxine) 1.2 ng/dL (0.80-1.80)
[2020-05-13 17:54] LABS: African American GFR (CKD) 77.2 (60.0-200.0); Albumin 4.4 g/dL (3.80-4.90); Albumin/Globulin Ratio 1.83 (1.60-3.17); Anion Gap 8.7 mmol/L (4.00-12.00); BUN/Creat Ratio 15.56 Ratio (12.00-20.00); Calcium 9.4 mg/dL (8.7-10.3); Carbon Dioxide 26.3 mmol/L (21.6-31.8); Chol/HDL Ratio 4.22; Globulin 2.4 g/dL (1.6-3.3); LDL Cholesterol,Calculated 97.4 mg/dL (0.0-131.0); Non-African American GFR(CKD) 66.6 (60.0-200.0); Potassium 4.3 mmol/L (3.5-5.5); Total Protein 6.8 g/dL (6.2-8.2); VLDL Calculation 21.6 mg/dL (5.00-40.00)
== END | disposition home or self-care (01) ==
LOC: LABWHC1 08:09
PROVIDERS: ATTEND Internal Medicine
DX: Z00.00 Encounter for general adult medical examination without abnormal findings (principal); E78.5 Hyperlipidemia, unspecified; I10 Essential (primary) hypertension
CPT/HCPCS: 36415; 80053; 80061; 82164; 84439; 84443; 85025

== ENCOUNTER → 2020-05-17 | Outpatient (CLI) | payer MEDICARE ==
--- NOTE | 2020-05-17 09:40 | CT ---
EXAMINATION TYPE: CT angio head neck DATE OF EXAM: 05/17/2020 COMPARISON: CTA at 10/09/2018 HISTORY: Cerebral aneurysm CT DLP: 1530.4 mGycm CONTRAST: Performed without and with IV Contrast, patient injected with 65 mL of Isovue 370. Combination Contrast CTA cervical carotids and [place] CTA cervical carotids with 3-D recons truction Contrast CTA of the cervical carotids was performed 3-D reconstruction imaging obtained at a separate workstation. Right carotid system: Mild plaque is seen of the right common carotid artery. There is mild plaque a lso noted at the carotid bulb and proximal ICA. No significant diameter reduction. ECA is patent. Right vertebral artery appears unremarkable. Left carotid system: Mild plaque is seen of the left common carotid artery. There is mild plaque als o noted at the carotid bulb and proximal ICA. No significant diameter reduction. ECA is patent. Lef t vertebral artery appears unremarkable. IMPRESSION: 1. No significant diameter reduction to account for the patient's symptoms. CTA [place] with 3-D reconstruction Contrast CTA of the [place] was performed 3-D reconstruction imaging obtained at a separate workstation. Vertebrobasilar system as well as intracranial portions of the internal carotid arteries and their ma ayaz tributaries are patent. 2 mm right MCA artery aneurysm is stable. Previously noted 2 mm aneurysm of the left posterior inferior cerebellar artery is not redemonstrated. Please note MRI provides grea ter sensitivity and specificity. Visualized brain appears grossly unremarkable. IMPRESSION: 1. Stable 2 mm aneurysm right MCA artery horizontal M1 segment. 2. Previously described 2 mm aneurysm of the left PICA is not redemonstrated.
== END | disposition home or self-care (01) ==
LOC: RADCTMAIN 07:42
PROVIDERS: ATTEND Internal Medicine
DX: I67.1 Cerebral aneurysm, nonruptured (principal)
CPT/HCPCS: 70496; 70498; Q9967

== ENCOUNTER 2021-04-05 09:03 | Day surgery (SDC) | payer MEDICARE ==
[2021-04-03 12:05] VITALS: BMI 35.4
[~2021-04-05 09:03] MED LIST changes: +CYCLOPENTOLATE 1% OPHTH SOLN 2 ML BTL OP PRN; +LIDOCAINE 1% (10MG/ML) FOR IV START INTRADERMA PRN; -LIDOCAINE 1% 20 ML VIAL (10MG/ML) FOR IV START INTRADERMA PRN; +MOXIFLOXACIN HCL 0.5% DROPS 3 ML BTL OP PRN; +PHENYLEPHRINE 2.5% OPHTH DRP 2ML OP PRN; +TETRACAINE 0.5% OPHTH (PF) DROPS 4 ML BTL OP PRN; +TIMOLOL 0.5% OPHTH DROPS 5 ML BTL OP PRN; +TOBRAMYCIN 0.3% OPHTH DROPS 5 ML BTL RIGHT EAR PRN
[2021-04-05 10:07] VITALS: RESP 16; TEMP 97.3
[2021-04-05] MEDS ORDERED: fentaNYL (PF) 50 MCG/ML 2 ML AMP ONE (10:44)
[2021-04-05] MEDS ORDERED: LIDOCAINE 1% (PF) 10MG/ML VIAL SQ ONE (10:48)
[2021-04-05] MEDS ORDERED: EPINEPHrine (PF) 0.3 ML in BALANCED SALT IRRIG SOLN COMB2 500 ML IRRIGATION ONE (10:48)
[2021-04-05] MEDS ORDERED: BALANCED SALT IRRIG SOLN COMB2 15 ML IRRIG.SOLN INTRAOCULA ONE (10:48)
[2021-04-05] MEDS ORDERED: DUOVISC KIT (GREEN BOX) INTRAOCULA ONE (10:50)
[2021-04-05] MEDS ORDERED: TRYPAN BLUE 0.06% SYRINGE 0.5 ML SYRINGE INTRAOCULA ONE (11:06)
[2021-04-05] MEDS ORDERED: TIMOLOL 0.5% OPHTH DROPS 5 ML BTL RIGHT EYE ONE (11:24)
[2021-04-05] MEDS ORDERED: prednisoLONE ACETATE 1% OPHTH DROPS 5 ML BTL RIGHT EYE ONE (11:24)
--- NOTE | 2021-04-05 11:24 | P.OP ---
Date of Procedure: 04/05/21 Preoperative Diagnosis: NS & POAG mild Postoperative Diagnosis: same Procedure(s) Performed: PIOL, OD Implants: [id number] & iStent GTS 100L Anesthesia: MAC Surgeon: Zak Medina Pathology: none sent Condition: stable Disposition: same day Indications for Procedure: blurry vision and glaucoma control problem Operative Findings: no complications
[2021-04-05 12:02] VITALS: BP 147/80; PULSE 65
--- NOTE | 2021-04-06 06:26 | OP ---
OPERATIVE REPORT DATE OF SURGERY: April 05, 2021. PROCEDURE PERFORMED: Phacoemulsification of cataract and intraocular lens implant of the right eye with eye stent implantation, right eye. 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 SURGEON: Dr. Zak Medina. ANESTHESIA: Topical. ESTIMATED BLOOD LOSS: Is less than 5 mL. SPECIMEN: None. NARRATIVE: After obtaining the appropriate consent, the patient was brought to the operating room. There she was placed on cardiac monitoring prepped and draped in the usual sterile manner. She was approached from her right temporal side and at the 11 o'clock position an MVR blade was used to create a paracentesis port. Through this opening 1% Xylocaine MPF 50/50 mix with balanced salt solution was injected into the anterior chamber. Trypan blue was then instilled into the anterior chamber and left in place for 1 minute. Trypan blue was then irrigated away with balanced salt solution and the anterior chamber was then stabilized with Viscoat. At the 9 o'clock position, a 2.5 mm keratome was used to create a self-sealing corneal flap incision. The patient was then asked to rotate her head approximately 45 degrees to her left while maintaining a gaze in that general direction. A gonioprism was placed on the patient's cornea and the trabecular mesh was identified. An eye stent inject model [id number] was introduced across the anterior chamber and the stylet exposed and at about 2 o'clock. The stylet was pressed into the trabecular mesh work slightly dimpling that area. The trigger was released and the device was deployed into the trabecular meshwork without difficulty. Approximately at 4 o'clock, a 2nd eye stent device was similarly placed within the trabecular meshwork without difficulty. A small amount of heme was identified effluxing from the orifices of each of the 2 devices. The patient was then rotated back to the normal supine position and a cystotome was used to begin a continuous tear capsulorrhexis which was completed using the Utrata forceps. Hydrodissection and hydrodelineation of the lens were accomplished with balanced salt solution. Phacoemulsification of the lens utilizing phaco chop was accomplished at 11.28 seconds at 10% power. Additional Xylocaine MPF was instilled into the anterior chamber. This was followed by removal of the remaining cortex under irrigation aspiration as well as careful polishing of the posterior capsule in the capsule vacuum mode. Provisc was then used to stabilize the capsular bag and a Bausch and Lomb MX 60 E 22.5 diopter posterior chamber intraocular lens was then inserted into the capsular bag without difficulty. The remaining viscoelastic was removed from in and around the intra-ocular lens and the eye was then brought to normal intraocular pressure through the paracentesis port with balanced salt solution. The paracentesis as well as the temporal incision were confirmed watertight. She then received 2 drops of 0.5% timolol followed by 2 drops of 0.5% moxifloxacin, was then lightly patched and shielded in the usual manner. There were no complications from the procedure. She tolerated the procedure well and was returned to outpatient recovery in good condition. LACIE / SAMI: [id number] /
== END 2021-04-05 12:16 | disposition home or self-care (01) ==
LOC: OR 09:03
PROVIDERS: ATTEND Ophthalmology
DX: H25.11 Age-related nuclear cataract, right eye (principal); H40.89 Other specified glaucoma; D86.9 Sarcoidosis, unspecified; I10 Essential (primary) hypertension; K21.9 Gastro-esophageal reflux disease without esophagitis; K58.9 Irritable bowel syndrome, unspecified; Z79.82 Long term (current) use of aspirin; Z79.899 Other long term (current) drug therapy; Z88.1 Allergy status to other antibiotic agents; Z88.0 Allergy status to penicillin; Z88.2 Allergy status to sulfonamides; Z88.8 Allergy status to other drugs, medicaments and biological substances
CPT/HCPCS: 66984; V2632; C1783; J0171; J3010; J2001

== ENCOUNTER 2021-05-03 13:16 | Day surgery (SDC) | payer MEDICARE ==
[2021-05-01 11:31] VITALS: BMI 35.4
[~2021-05-03 13:16] MED LIST changes: -CYCLOPENTOLATE 1% OPHTH SOLN 2 ML BTL OP PRN; -LACTATED RINGERS 1,000 ML IV SCH; -LIDOCAINE 1% (10MG/ML) FOR IV START INTRADERMA PRN; -MOXIFLOXACIN HCL 0.5% DROPS 3 ML BTL OP PRN; -PHENYLEPHRINE 2.5% OPHTH DRP 2ML OP PRN; +TOBRAMYCIN 0.3% OPHTH DROPS 5 ML BTL LEFT EYE PRN; -TOBRAMYCIN 0.3% OPHTH DROPS 5 ML BTL RIGHT EAR PRN
[2021-05-03] MEDS: PHENYLEPHRINE 2.5% OPHTH DRP 2ML OP PRN ×3 (13:45→14:04)
[2021-05-03 13:48] VITALS: TEMP 97
[2021-05-03] MEDS: CYCLOPENTOLATE 1% OPHTH SOLN 2 ML BTL OP PRN ×2 (13:48→13:59)
[2021-05-03] MEDS ORDERED: LACTATED RINGERS 1,000 ML IV ONE (13:59)
[2021-05-03] MEDS ORDERED: MIDAZOLAM 2 MG/2 ML VIAL ONE (15:28)
[2021-05-03] MEDS ORDERED: fentaNYL (PF) 50 MCG/ML 2 ML AMP ONE (15:28)
[2021-05-03] MEDS ORDERED: EPINEPHrine (PF) 0.3 ML in BALANCED SALT IRRIG SOLN COMB2 500 ML IRRIGATION ONE (15:50)
[2021-05-03] MEDS ORDERED: LIDOCAINE 1% (PF) 10MG/ML VIAL MISCELLANE ONE (15:52)
[2021-05-03] MEDS ORDERED: DUOVISC KIT (GREEN BOX) INTRAOCULA ONE (15:52)
[2021-05-03] MEDS ORDERED: TRYPAN BLUE 0.06% SYRINGE 0.5 ML SYRINGE INTRAOCULA ONE (15:52)
[2021-05-03] MEDS ORDERED: BALANCED SALT IRRIG SOLN COMB2 15 ML IRRIG.SOLN IRRIGATION ONE (15:52)
--- NOTE | 2021-05-03 16:16 | P.OP ---
Date of Procedure: 05/03/21 Preoperative Diagnosis: NS & POAG mild Postoperative Diagnosis: same Procedure(s) Performed: PIOL & iStent OD Implants: [id number] 22.0 iStent G2W Anesthesia: MAC Surgeon: Zak Medina Pathology: none sent Condition: stable Disposition: same day Indications for Procedure: blurry vision and NAG Operative Findings: no complications
[2021-05-03 16:35] VITALS: BP 141/60; PULSE 71; RESP 18
--- NOTE | 2021-05-04 22:01 | OP ---
OPERATIVE REPORT DATE OF SURGERY: May 03, 2021. PROCEDURE PERFORMED: Phacoemulsification of cataract and intraocular lens implant of the left eye with an eye stent implantation, left eye. 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 SURGEON: Dr. Zak Medina. ANESTHESIA: Topical. ESTIMATED BLOOD LOSS: Is less than 5 ,L. SPECIMEN: None. NARRATIVE: After obtaining the appropriate consent, the patient was brought to the operating room there she was placed on cardiac monitoring prepped and draped in the usual sterile manner. She was approached from her left temporal side and at the 5 o'clock position an MVR blade was used to create a paracentesis port. Through this opening 1% Xylocaine MPF 50 50 mix with balanced salt solution was injected into the anterior chamber. This was followed by a small air bubble followed by trypan blue which was placed in the eye for 1 minute. The tri byers blue was then irrigated away and the anterior chamber was then stabilized with Viscoat. A small amount of the Viscoat material was put on the patient's cornea and a temporal incision using a 2.5 mm keratome was used to create a self-sealing corneal flap incision. The patient was then asked to rotate her head to the right approximately 45 degrees and maintain the gaze in that general direction. A gonio prism was placed on the patient's eye with identification of the trabecular meshwork highlighted using the trypan blue. An eye stent inject model [id number] was advanced across the anterior chamber of the eye, and 2 devices were implanted approximately 3-4 hours apart on the nasal side of the patient's eye. The patient was then returned to the normal supine position and a cystotome was then introduced to begin a continuous tear capsulorrhexis which was completed using the Utrata forceps. Hydrodissection and hydrodelineation of the lens was accomplished with balanced salt solution. Phacoemulsification of the lens using phaco chop was accomplished at 15.48 seconds at 15% power. Additional Xylocaine MPF was instilled into the anterior chamber. This was followed by removal of the remaining cortex under irrigation/aspiration as well as careful polishing of the posterior capsule in the capsule vacuum mode. Additional Provisc was then used to stabilize the capsular bag and a Bausch and Lomb MX 60 E 22.0 diopter posterior chamber intraocular lens was then injected into the capsular bag without difficulty. The lens was manipulated slightly with a [place] hook to orient it well within the bag and the remaining viscoelastic was removed from in and around the intra-ocular lens under irrigation and aspiration. The eye was then brought to normal intraocular pressure through the paracentesis port and the paracentesis as well as temporal wounds were confirmed watertight. She then received 2 drops of 0.5% timolol followed by 2 drops of 0.3% tobramycin ophthalmic. She was then lightly patched and shielded in the usual manner. There were no complications from the procedure. She tolerated the procedure well, was returned to outpatient recovery in good condition. LACIE / SAMI: [id number] / MTDEdil
== END 2021-05-03 16:41 | disposition home or self-care (01) ==
LOC: OR 13:16
PROVIDERS: ATTEND Ophthalmology
DX: H40.1121 Primary open-angle glaucoma, left eye, mild stage (principal); H25.12 Age-related nuclear cataract, left eye; H40.033 Anatomical narrow angle, bilateral; D18.09 Hemangioma of other sites; H16.103 Unspecified superficial keratitis, bilateral; H00.026 Hordeolum internum left eye, unspecified eyelid; H00.023 Hordeolum internum right eye, unspecified eyelid; D86.9 Sarcoidosis, unspecified; K21.9 Gastro-esophageal reflux disease without esophagitis; Z98.41 Cataract extraction status, right eye; Z96.1 Presence of intraocular lens; I10 Essential (primary) hypertension; I25.3 Aneurysm of heart; Z90.49 Acquired absence of other specified parts of digestive tract; Z98.890 Other specified postprocedural states; Z79.82 Long term (current) use of aspirin; Z79.899 Other long term (current) drug therapy; Z88.1 Allergy status to other antibiotic agents; Z88.5 Allergy status to narcotic agent; Z88.0 Allergy status to penicillin; Z88.2 Allergy status to sulfonamides; Z90.710 Acquired absence of both cervix and uterus
CPT/HCPCS: 66984; 66183; C1780; J2250; J0171; J3010; J2001

== ENCOUNTER → 2021-05-10 | Outpatient (CLI) | payer MEDICARE ==
[2021-05-10 10:40] VITALS: BP 155/83; PULSE 72; RESP 18; TEMP 98.2
--- NOTE | 2021-05-10 11:18 | P.HPOB ---
History of Present Illness H&P Date: 05/10/21 Chief Complaint: The patient is here for her routine gynecologic exam and ma mmogram. This is a 66-year-old with an LMP of 1998. The patient is status post DARLYN/BSO for benign reasons. She is without gynecologic complaints. She has a known small cystocele which she states has not caused her any problems. Review of Systems The patient has lost 16 pounds over the last 2 years. She denies respiratory, cardiac, or G.I. problems. Past Medical History Past Medical History: Eye Disorder, GERD/Reflux, Hypertension Additional Past Medical History / Comment(s): Glaucoma negrita eyes, Sarcoidosis, migraines, IBS. 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 History of Any Multi-Drug Resistant Organisms: None Reported Past Surgical History: Cholecystectomy, Hysterectomy Additional Past Surgical History / Comment(s): Mediastinoscopy. DARLYN/BSO in 1997. Cerebral angiogram, RIGHT EYE-CATARACT SURGERY, eye stents for glaucoma. Colonoscopy EGD 2018(next after 5yr). Past Anesthesia/Blood Transfusion Reactions: No Reported Reaction Past Psychological History: No Psychological Hx Reported Smoking Status: Former smoker Past Alcohol Use History: None Reported Additional Past Alcohol Use History / Comment(s): quit smoking 1979, smoked for 4 yrs 5 CIG A WEEK Past Drug Use History: None Reported Additional History: She is single. 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 - Past Family History Mother Family Medical History: Cancer Additional Family Medical History / Comment(s): Colon cancer. Sister(s) Family Medical History: Diabetes Mellitus Father Family Medical History: Cancer Additional Family Medical History / Comment(s): Prostate,bladder Brother(s) Family Medical History: Cancer Additional Family Medical History / Comment(s): Prostate cancer. Medications and Allergies Home Medications Medication Instructions Recorded Confirmed Type Aspirin 81 mg PO DAILY 05/19/14 05/10/21 History Metoprolol Succinate (ER) [Toprol 100 mg PO DAILY 05/19/14 05/10/21 History XL] Omeprazole [PriLOSEC] 20 mg PO AC-BRKFST 05/19/14 05/10/21 History Bimatoprost [Lumigan .01% Ophth 1 drop BOTH EYES DAILY 03/11/19 05/10/21 History Soln] Losartan Potassium 50 mg PO DAILY 03/11/19 05/10/21 History Brimonidine Tartrate/Timolol 1 drop BOTH EYES BID 04/03/21 05/10/21 History [Combigan 0.2%-0.5% Eye Drops] Multivitamins, Thera [Multivitamin 1 tab PO HS 04/03/21 05/10/21 History (formulary)] Cholecalciferol [Vitamin D3 (25 50 mcg PO DAILY 05/10/21 05/10/21 History Mcg = 1000 Iu)] Allergies Allergy/AdvReac Type Severity Reaction Status Date / Time levofloxacin [From Levaquin] Allergy headache Verified 05/10/21 10:32 meperidine HCl [From Demerol] Allergy Nausea Verified 05/10/21 10:32 Penicillins Allergy Rash/Hives Verified 05/10/21 10:32 Sulfa (Sulfonamide Allergy Rash/Hives Verified 05/10/21 10:32 Antibiotics) sulfamethoxazole Allergy Rash/Hives Verified 05/10/21 10:32 [From Bactrim] trimethoprim [From Bactrim] Allergy Rash/Hives Verified 05/10/21 10:32 erythromycin base AdvReac Abdominal Verified 05/10/21 10:32 Pain Exam Vital Signs Temp Pulse Resp BP Pulse Ox 05/10/21 10:35 98.2 F 72 18 155/83 97 Intake and Output 05/09/21 05/10/21 05/10/21 22:59 06:59 14:59 Other: Weight 99.79 kg Height 5 feet 1 inch, weight 220 pounds, BMI 41.6. This is a well-developed well-nourished heavyset white female who is alert and oriented times 3 in no acute distress. HEENT: Within normal limits. NECK: Supple without mass or thyromegaly. CHEST AND LUNGS: Clear to auscultation. HEART: Regular rate and rhythm. BREASTS: Are without mass or discharge. AXILLARY EXAM: Negative for adenopathy. BACK: Negative for CVA tenderness. ABDOMEN: Soft, nontender, without palpable masses. PELVIC EXAM: External genitalia appears normal with mild atrophy. Vagina appears normal with mild atrophy. There is a grade 1 cystocele at rest which increases to a grade 2 cystocele with Valsalva. There is a minimal rectocele. The vaginal cuff is well supported. Bimanual examination is negative for mass or tenderness. RECTAL EXAM: Rectovaginal exam is negative for mass or tenderness and is negative for occult blood. EXTREMITIES: Nontender. IMPRESSION: 1. 66-year-old menopausal female who is status post DARLYN/BSO for benign reasons with stable grade 1-2 cystocele which is asymptomatic. PLAN: 1. Pap smears have been discontinued. 2. Self breast awareness was discussed with the patient. 3. Screening mammogram will be done today. 4. Osteoporosis prevention was discussed. I have stressed the importance of adequate calcium, vitamin D and regular exercise. Recommended amounts of calcium and vitamin D were also discussed. She had a bone density test on 03/30/2019 which was normal. This will be repeated after about 5 years. 5. She has completed her Covid vaccination series. 6. She was advised to return in one year for her annual well woman exam.
--- NOTE | 2021-05-12 10:40 | MM ---
Reason for exam: screening (asymptomatic). Last mammogram was performed 1 year and 1 month ago. History: Patient is postmenopausal. Physical Findings: A clinical breast exam by your physician is recommended on an annual basis and results should be correlated with mammographic findings. MG 3D Screening Mammo W/Cad Bilateral CC and MLO view(s) were taken. Prior study comparison: April 19, 2020, bilateral MG 3d screening mammo w/cad. December 31, 2018, bilateral MG screening mammo w CAD. No significant changes when compared with prior studies. ASSESSMENT: Benign, BI-RAD 2 RECOMMENDATION: Routine screening mammogram of both breasts in 1 year.
== END ==
LOC: WWCWWP 10:23
PROVIDERS: ATTEND Obstetrics & Gynecology
DX: Z12.31 Encounter for screening mammogram for malignant neoplasm of breast (principal); N81.10 Cystocele, unspecified; I10 Essential (primary) hypertension; K21.9 Gastro-esophageal reflux disease without esophagitis; G43.909 Migraine, unspecified, not intractable, without status migrainosus; Z79.899 Other long term (current) drug therapy; Z79.82 Long term (current) use of aspirin; Z90.710 Acquired absence of both cervix and uterus; Z87.891 Personal history of nicotine dependence; Z88.1 Allergy status to other antibiotic agents; Z88.2 Allergy status to sulfonamides; Z88.0 Allergy status to penicillin; Z88.6 Allergy status to analgesic agent
CPT/HCPCS: 77063; 77067

== ENCOUNTER → 2021-06-02 | Outpatient (CLI) | payer MEDICARE ==
[2021-06-02 15:49] LABS: Basophils # (A) 0.06 X 10*3/uL (0.00-0.10); Basophils % (A) 0.9 %; Eosinophils # (A) 0.47 X 10*3/uL (0.04-0.35); Eosinophils % (A) 6.8 %; HCT 42.1 % (37.2-46.3); Lymphocytes # (A) 0.59 X 10*3/uL (0.90-5.00); Lymphocytes % (A) 8.6 %; MCH 31.4 pg (27.0-32.0); MCHC 33.3 g/dL (32.0-37.0); MCV 94.4 fL (80.0-97.0); Mean Platelet Volume 10.5 fL (9.5-12.2); Monocytes # (A) 0.87 X 10*3/uL (0.20-1.00); Monocytes % (A) 12.6 %; Neutrophils # (A) 4.88 X 10*3/uL (1.80-7.70); Neutrophils % (A) 70.7 %; Platelet Count 226 X 10*3/uL (140-440); RBC 4.46 X 10*6/uL (4.10-5.20); RDW 12.9 % (11.5-14.5)
[2021-06-02 18:56] LABS: African American GFR (CKD) 88.4 (60.0-200.0); Albumin 4.1 g/dL (3.80-4.90); Albumin/Globulin Ratio 1.58 (1.60-3.17); Anion Gap 6.4 mmol/L (4.00-12.00); BUN/Creat Ratio 16.25 Ratio (12.00-20.00); Calcium 9.3 mg/dL (8.7-10.3); Carbon Dioxide 28.6 mmol/L (21.6-31.8); Chol/HDL Ratio 4.54; Globulin 2.6 g/dL (1.6-3.3); LDL Cholesterol,Calculated 105.4 mg/dL (0.0-131.0); Non-African American GFR(CKD) 76.3 (60.0-200.0); Potassium 4.5 mmol/L (3.5-5.5); Total Protein 6.7 g/dL (6.2-8.2); VLDL Calculation 25.6 mg/dL (5.00-40.00)
[2021-06-02 19:04] LABS: T4, Free (Free Thyroxine) 1.1 ng/dL (0.80-1.80)
== END | disposition home or self-care (01) ==
LOC: LABWHC1 07:06
PROVIDERS: ATTEND Internal Medicine
DX: Z00.00 Encounter for general adult medical examination without abnormal findings (principal); E78.5 Hyperlipidemia, unspecified; I10 Essential (primary) hypertension; D86.9 Sarcoidosis, unspecified
CPT/HCPCS: 36415; 80053; 80061; 82164; 84439; 84443; 85025

== ENCOUNTER → 2022-06-08 | Outpatient (CLI) | payer MEDICARE ==
[2022-06-08 14:21] LABS: Basophils # (A) 0.08 X 10*3/uL (0.00-0.10); Basophils % (A) 1.3 %; Eosinophils # (A) 0.32 X 10*3/uL (0.04-0.35); Eosinophils % (A) 5.4 %; Immature Grans, Automated 0.5 %; Lymphocytes # (A) 0.59 X 10*3/uL (0.90-5.00); Lymphocytes % (A) 9.9 %; MCH 30.2 pg (27.0-32.0); MCHC 32.6 g/dL (32.0-37.0); MCV 92.9 fL (80.0-97.0); Mean Platelet Volume 11.1 fL (9.5-12.2); Monocytes # (A) 0.77 X 10*3/uL (0.20-1.00); Monocytes % (A) 12.9 %; NRBC Per 100 WBC 0 /100 WBCS (0.0-0.0); Neutrophils # (A) 4.16 X 10*3/uL (1.80-7.70); Platelet Count 204 X 10*3/uL (140-440); RBC 4.63 X 10*6/uL (4.10-5.20); RDW 12.6 % (11.5-14.5); WBC 5.95 X 10*3/uL (4.50-10.00)
[2022-06-08 14:43] LABS: ALT 21 U/L (8-44); AST 35 U/L (13-35); Albumin 4.4 g/dL (3.8-4.9); Albumin/Globulin Ratio 1.63 (1.60-3.17); Alkaline Phosphatase 134 U/L (41-126); Blood Urea Nitrogen 10.7 mg/dL (9.0-27.0); Calcium 9.6 mg/dL (8.7-10.3); Carbon Dioxide 23.5 mmol/L (20.0-27.5); Chloride 104 mmol/L (96-109); Chol/HDL Ratio 4.15 Ratio; Globulin 2.7 g/dL (1.6-3.3); Glucose 100 mg/dL (70-110); LDL Cholesterol,Calculated 96.6 mg/dL (0.0-131.0); Non-African American GFR(CKD) 57.8 (60.0-200.0); Potassium 4.3 mmol/L (3.5-5.5); Sodium 142 mmol/L (135-145); Total Protein 7.1 g/dL (6.2-8.2)
== END | disposition home or self-care (01) ==
LOC: LABWHC1 09:33
PROVIDERS: ATTEND Internal Medicine
DX: I10 Essential (primary) hypertension (principal); E78.5 Hyperlipidemia, unspecified
CPT/HCPCS: 36415; 80053; 80061; 82164; 84439; 84443; 85025

== ENCOUNTER → 2022-06-13 | Outpatient (CLI) | payer MEDICARE ==
[2022-06-13 07:45] VITALS: BP 144/89; PULSE 85; RESP 17; TEMP 97.9
--- NOTE | 2022-06-13 08:31 | P.HPOB ---
History of Present Illness H&P Date: 06/13/22 Chief Complaint: The patient is here for her routine gynecologic exam and ma mmogram. This is a 67-year-old with an LMP of 1998. The patient is status post DARLYN/BSO for benign reasons. She is without gynecologic complaints. She has a known small cystocele which she states is not causing her any problems. Review of Systems She is getting about 9 pounds over the past year. Respiratory: She can get short of breath with exertion. She has seen her PCP regarding this. She denies cardiac or GI problems. Past Medical History Past Medical History: Eye Disorder, GERD/Reflux, Hypertension Additional Past Medical History / Comment(s): Glaucoma negrita eyes, Sarcoidosis, migraines, IBS. 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 History of Any Multi-Drug Resistant Organisms: None Reported Past Surgical History: Cholecystectomy, Hysterectomy Additional Past Surgical History / Comment(s): Mediastinoscopy. DARLYN/BSO in 1997. Cerebral angiogram, RIGHT EYE-CATARACT SURGERY, eye stents for glaucoma. Colonoscopy EGD 2018(next after 5yr). Past Anesthesia/Blood Transfusion Reactions: No Reported Reaction Past Psychological History: No Psychological Hx Reported Smoking Status: Former smoker Past Alcohol Use History: None Reported Additional Past Alcohol Use History / Comment(s): quit smoking 1979, smoked for 4 yrs 5 CIG A WEEK Past Drug Use History: None Reported Additional History: She is single and is not sexually active. 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 - Past Family History Mother Family Medical History: Cancer Additional Family Medical History / Comment(s): Colon cancer. Sister(s) Family Medical History: Diabetes Mellitus Father Family Medical History: Cancer Additional Family Medical History / Comment(s): Prostate,bladder Brother(s) Family Medical History: Cancer Additional Family Medical History / Comment(s): Prostate cancer. Medications and Allergies Home Medications Medication Instructions Recorded Confirmed Type Aspirin 81 mg PO DAILY 05/19/14 06/13/22 History Metoprolol Succinate (ER) [Toprol 100 mg PO DAILY 05/19/14 06/13/22 History XL] Omeprazole [PriLOSEC] 20 mg PO AC-BRKFST 05/19/14 06/13/22 History Bimatoprost [Lumigan .01% Ophth 1 drop BOTH EYES DAILY 03/11/19 06/13/22 History Soln] Losartan Potassium 50 mg PO DAILY 03/11/19 06/13/22 History Brimonidine Tartrate/Timolol 1 drop BOTH EYES BID 04/03/21 06/13/22 History [Combigan 0.2%-0.5% Eye Drops] Multivitamins, Thera [Multivitamin 1 tab PO HS 04/03/21 06/13/22 History (formulary)] Cholecalciferol [Vitamin D3 (25 50 mcg PO DAILY 05/10/21 06/13/22 History Mcg = 1000 Iu)] Allergies Allergy/AdvReac Type Severity Reaction Status Date / Time levofloxacin [From Levaquin] Allergy headache Verified 05/10/21 10:32 meperidine HCl [From Demerol] Allergy Nausea Verified 05/10/21 10:32 Penicillins Allergy Rash/Hives Verified 05/10/21 10:32 Sulfa (Sulfonamide Allergy Rash/Hives Verified 05/10/21 10:32 Antibiotics) sulfamethoxazole Allergy Rash/Hives Verified 05/10/21 10:32 [From Bactrim] trimethoprim [From Bactrim] Allergy Rash/Hives Verified 05/10/21 10:32 erythromycin base AdvReac Abdominal Verified 05/10/21 10:32 Pain Exam Vital Signs Temp Pulse Resp BP Pulse Ox 06/13/22 07:42 97.9 F 85 17 144/89 96 Intake and Output 06/12/22 06/13/22 06/13/22 22:59 06:59 14:59 Other: Weight 103.873 kg Height 5 feet 3 inches, weight 229 pounds, BMI 40.6. This is a well-developed well-nourished heavyset white female female who is alert and oriented times 3 in no acute distress. HEENT: Within normal limits. NECK: Supple without mass or thyromegaly. CHEST AND LUNGS: Clear to auscultation. HEART: Regular rate and rhythm. BREASTS: Are without mass or discharge. AXILLARY EXAM: Negative for adenopathy. BACK: Negative for CVA tenderness. ABDOMEN: Soft, nontender, without palpable masses. PELVIC EXAM: External genitalia appears normal with mild atrophy. Vagina appears normal with mild atrophy. There is a grade 2 cystocele noted which is unchanged from her previous exam. Bimanual examination is negative for mass or tenderness. RECTAL EXAM: Rectovaginal exam is negative for mass or tenderness and is negative for occult blood. EXTREMITIES: Nontender. IMPRESSION: 1. 67-year-old menopausal female status post DARLYN/BSO for benign reasons, with stable grade 2 cystocele which is asymptomatic. PLAN: 1. Pap smears have been discontinued. 2. Self breast awareness was discussed with the patient. We have also discussed symptoms associated with inflammatory breast cancer. 3. Screening mammogram was done today. 4. Osteoporosis prevention was discussed. I have stressed the importance of adequate calcium, vitamin D and regular exercise. Recommended amounts of calcium and vitamin D were also discussed. She had a normal bone density test on 03/30/2019. We will plan on repeating this next year. 5. She has completed her Covid vaccination series and did receive one booster. She is planning to get a second booster. 6. The patient was advised to return in 1 year for her well woman examination.
--- NOTE | 2022-06-14 19:18 | MM ---
Reason for Exam: Screening (asymptomatic). Last mammogram was performed 1 year(s) and 1 month(s) ago. Patient History: Menarche at age 10. First Full-Term at age 25. Left ovary removed at age 43. Right ovary removed at age 43. Hysterectomy at age 43. Postmenopausal. Risk Values: Mignon 5 year model risk: 2.1%. NCI Lifetime model risk: 6.7%. Prior Study Comparison: 12/31/2018 Bilateral Screening Mammogram, [facility]. 04/19/2020 Bilateral Screening Mammogram, [facility]. 05/10/2021 Bilateral Screening Mammogram, [facility]. Tissue Density: There are scattered fibroglandular densities. Findings: Analyzed By CAD. There is a lobulated focal asymmetry central right 4:00 position which becoming progressively more defined. Otherwise, no significant change from prior exams. Overall Assessment: Incomplete: need additional imaging evaluation, BI-RAD 0 Management: Special View Mammogram of the right breast. 1. Additional views right breast to include spot 3-D CC, spot 3-D MLO, and 3-D LM views. 2. Targeted right breast ultrasound for any persisting abnormality. [facility] will attempt to contact patient to return for supplemental views and ultrasound if indicated. Electronically signed and approved by: Jacques Herr M.D. Radiologist
== END | disposition home or self-care (01) ==
LOC: RADMAMWWP 07:15
PROVIDERS: ATTEND Obstetrics & Gynecology
DX: Z12.31 Encounter for screening mammogram for malignant neoplasm of breast (principal)
CPT/HCPCS: 77063; 77067

== ENCOUNTER → 2022-06-18 | Outpatient (CLI) | payer MEDICARE ==
--- NOTE | 2022-06-18 07:53 | MM ---
Reason for Exam: Additional evaluation requested from abnormal screening. Last screening mammogram was performed less than 1 month ago. Patient History: Menarche at age 10. First Full-Term at age 25. Left ovary removed at age 43. Right ovary removed at age 43. Hysterectomy at age 43. Postmenopausal. Risk Values: Mignon 5 year model risk: 2.1%. NCI Lifetime model risk: 6.7%. Prior Study Comparison: 08/14/2013 Bilateral Screening Mammogram, [facility]. 11/08/2015 Bilateral Screening Mammogram, [facility]. 12/31/2018 Bilateral Screening Mammogram, [facility]. 04/19/2020 Bilateral Screening Mammogram, [facility]. 05/10/2021 Bilateral Screening Mammogram, [facility]. 06/13/2022 Bilateral MG 3D screening mammo w/cad, [facility]. Tissue Density: Right: There are scattered fibroglandular densities. Findings: Analyzed By CAD. There is a lobular 1.2 cm nodularity 5 cm nipple in the lower inner quadrant middle right breast. This appears to be an interval change comparison studies. Additional workup with ultrasound is recommended. Overall Assessment: Incomplete: need additional imaging evaluation, BI-RAD 0 Management: Diagnostic Breast Ultrasound of the right breast. A clinical breast exam by your physician is recommended on an annual basis and results should be correlated with mammographic findings. This exam should not preclude additional follow-up of suspicious palpable abnormalities. Results were given to the patient verbally at the time of exam. Electronically signed and approved by: Dustin Eddy D.O. Radiologis
--- NOTE | 2022-06-18 08:25 | USB ---
Reason for Exam: Additional evaluation requested from abnormal screening. Patient History: Menarche at age 10. First Full-Term at age 25. Left ovary removed at age 43. Right ovary removed at age 43. Hysterectomy at age 43. Postmenopausal. Risk Values: Mignon 5 year model risk: 2.1%. NCI Lifetime model risk: 6.7%. Technique: Method: Targeted. Prior Study Comparison: 04/19/2020 Bilateral Screening Mammogram, [facility]. 05/10/2021 Bilateral Screening Mammogram, [facility]. 06/13/2022 Bilateral MG 3D screening mammo w/cad, [facility]. Findings: The lower inner quadrant of the right breast, the axilla of the right breast and the retroareolar of the right breast were scanned. There is an old mass appears heterogenous and contains some peripheral vascularity. The outer portion is slightly hypoechoic. This could be an intramammary lymph node. However, given the changes on the mammogram, biopsy is recommended. Overall Assessment: Suspicious, BI-RAD 4 Management: Ultrasound Core Biopsy of the right breast. A clinical breast exam by your physician is recommended on an annual basis and results should be correlated with mammographic findings. Electronically signed and approved by: Dustin Eddy D.O. Radiologis
== END | disposition home or self-care (01) ==
LOC: RADMAMWWP 07:18
PROVIDERS: ATTEND Obstetrics & Gynecology
DX: R92.8 Other abnormal and inconclusive findings on diagnostic imaging of breast (principal); Z78.0 Asymptomatic menopausal state
CPT/HCPCS: 77065; 76642; G0279; 77061

== ENCOUNTER → 2022-06-28 | Outpatient (CLI) | payer MEDICARE ==
--- NOTE | 2022-06-28 16:16 | CT ---
EXAMINATION TYPE: CT angio head neck CT DLP: 1486.80 mGycm, Automated exposure control for dose reduction was used. DATE OF EXAM: 06/28/2022 3:14 PM COMPARISON: CTA head and neck 05/17/2020 CT chest 03/10/2019. CLINICAL INDICATION:Female, 67 years old with history of I67.1 cerebral aneurysm; TECHNIQUE: Axially acquired helical CT angiogram of the head and neck was obtained before and after c ontrast utilizing 65 cc of Isovue-370 administered intravenously. Axial images are supplemented with 3D reconstructions which were post-processed at an independent workstation. NASCET criteria used. FINDINGS: CTA HEAD: No evidence of acute intracranial hemorrhage, mass effect, or midline shift. The ventricles, sulci, a nd cisterns are unremarkable. Both ocular lenses are surgically absent. The paranasal sinuses and mas toid air cells are clear. The visualized portions of the internal carotid arteries, middle cerebral arteries, anterior cerebral arteries, and posterior cerebral arteries are patent. Stable 2 mm right M1 segment MCA artery aneury sm. Previously seen 2 mm aneurysm left posterior inferior cerebellar artery is not redemonstrated. An terior and posterior communicating arteries are hypoplastic. The basilar and vertebral arteries are patent. CTA NECK: Right Carotid System: The common carotid artery and external carotid artery are patent. Mild plaque seen in the carotid bul b and proximal ICA. The carotid bifurcation demonstrates no evidence of hemodynamically significant s tenosis. The remaining portions of the internal carotid artery demonstrate normal size without signif icant narrowing. Left Carotid System: The common carotid artery and external carotid artery are patent. Medial deviation of the left technical internship al carotid artery. Mild plaque seen in the carotid bulb and proximal ICA. The carotid bifurcation dem onstrates no evidence of hemodynamically significant stenosis. The remaining portions of the internal carotid artery demonstrate normal size without significant narrowing. Vertebral arteries are patent without evidence hemodynamically significant stenosis. Left vertebral a rtery is dominant. There is a three-vessel aortic arch. The origins of the great vessels are patent. No evidence of hemo dynamically significant stenosis. Partial visualization of conglomerate mediastinal adenopathy as demonstrated on prior CT chest 019. Redemonstration of pulmonary nodules with index nodule along the left major fissure (series 11, image 2). This is previously demonstrated on CT chest and not significantly changed. IMPRESSION: 1. Stable 2 mm right MCA artery aneurysm M1 segment. 2. Redemonstration of pulmonary nodules and conglomerate mediastinal adenopathy from prior CT chest .
== END | disposition home or self-care (01) ==
LOC: RADCTMAIN 13:08
PROVIDERS: ATTEND Internal Medicine
DX: I67.1 Cerebral aneurysm, nonruptured (principal); R91.8 Other nonspecific abnormal finding of lung field
CPT/HCPCS: 82565; 84520; 70496; 70498; 36415; Q9967

== ENCOUNTER → 2022-12-24 | Outpatient (CLI) | payer MEDICARE ==
--- NOTE | 2022-12-24 09:20 | USB ---
Reason for Exam: Follow-up at short interval from prior study. Patient History: Menarche at age 10. First Full-Term at age 25. Left ovary removed at age 43. Right ovary removed at age 43. Hysterectomy at age 43. Postmenopausal. 07/13/2022, Benign US biopsy breast VAD RT on the right side. Risk Values: Mignon 5 year model risk: 2.5%. NCI Lifetime model risk: 7.9%. Prior Study Comparison: 06/13/2022 Bilateral MG 3D screening mammo w/cad, [facility]. 06/18/2022 Right MG 3D work up w/cad RT, [facility]. 07/13/2022 Right MG diagnostic mammo RT wo CAD, [facility]. Findings: The lower inner quadrant of the right breast and the retroareolar of the right breast were scanned. Targeted ultrasound of the right breast from 4-6 o'clock was performed with additional evaluation of the nipple. There is a biopsy clip demonstrated within the right breast at 4:00 4 cm from the nipple corresponding to prior biopsy. Small anechoic surrounding fluid most consistent with a seroma measuring 1.2 x 0.4 x 0.4 cm. Overall Assessment: Benign, BI-RAD 2 Management: Screening Mammogram of both breasts in 6 months. A clinical breast exam by your physician is recommended on an annual basis and results should be correlated with mammographic findings. This exam should not preclude additional follow-up of suspicious palpable abnormalities. Results were given to the patient verbally at the time of exam. Electronically signed and approved by: Collin Ortiz D.O.
== END | disposition home or self-care (01) ==
LOC: RADUSWWP 08:44
PROVIDERS: ATTEND Surgery
DX: R92.8 Other abnormal and inconclusive findings on diagnostic imaging of breast (principal); Z78.0 Asymptomatic menopausal state

== ENCOUNTER → 2023-06-22 | Outpatient (CLI) | payer MEDICARE ==
[2023-06-22 12:47] LABS: Basophils # (A) 0.06 X 10*3/uL (0.00-0.10); Eosinophils # (A) 0.35 X 10*3/uL (0.04-0.35); Eosinophils % (A) 5.8 %; HCT 40.3 % (37.2-46.3); HGB 13.6 d/dL (12.0-15.0); Lymphocytes # (A) 0.61 X 10*3/uL (0.90-5.00); Lymphocytes % (A) 10.1 %; MCH 30.9 pg (27.0-32.0); MCHC 33.7 d/dL (32.0-37.0); MCV 91.6 FL (80.0-97.0); Mean Platelet Volume 11.2 FL (9.5-12.2); Monocytes # (A) 0.69 X 10*3/uL (0.20-1.00); Monocytes % (A) 11.4 %; NRBC Per 100 WBC 0 X 10*3/uL (0.00-0.01); Platelet Count 206 X 10*3/uL (140-440); RDW 12.8 % (11.5-14.5); WBC 6.05 X 10*3/uL (4.50-10.00)
[2023-06-22 13:17] LABS: ALT 16 U/L (8-44); AST 31 U/L (13-35); Albumin 4.2 d/dL (3.8-4.9); Albumin/Globulin Ratio 1.56 Ratio (1.60-3.17); Alkaline Phosphatase 118 U/L (41-126); BUN/Creat Ratio 16.78 Ratio (12.00-20.00); Blood Urea Nitrogen 15.1 mg/dL (9.0-27.0); Calcium 9.7 mg/dL (8.7-10.3); Carbon Dioxide 24.6 mmol/L (21.6-31.8); Chloride 104 mmol/L (96-109); Chol/HDL Ratio 3.71 Ratio; Globulin 2.7 d/dL (1.6-3.3); Glucose 106 mg/dL (70-110); LDL Cholesterol,Calculated 93.2 mg/dL (0.0-131.0); Potassium 4.2 mmol/L (3.5-5.5); Sodium 141 mmol/L (135-145); T4, Free (Free Thyroxine) 1.26 ng/dL (0.80-1.80); Total Bilirubin 0.8 mg/dL (0.3-1.2); Total Protein 6.9 d/dL (6.2-8.2)
[2023-06-22 13:37] LABS: Erythrocyte Sedimentation Rate 28 mm/Hr (0-30)
== END | disposition home or self-care (01) ==
LOC: LABWHC1 08:41
PROVIDERS: ATTEND Internal Medicine
DX: I10 Essential (primary) hypertension (principal); E78.5 Hyperlipidemia, unspecified; N39.0 Urinary tract infection, site not specified; G62.9 Polyneuropathy, unspecified
CPT/HCPCS: 36415; 80053; 80061; 82306; 82607; 84439; 84443; 85025; 85652; 87086

== ENCOUNTER → 2023-06-24 | Outpatient (CLI) | payer MEDICARE ==
--- NOTE | 2023-06-24 11:16 | MM ---
Reason for Exam: Screening (asymptomatic). Last screening mammogram was performed 12 month(s) ago. Patient History: Menarche at age 10. First Full-Term at age 25. Left ovary removed at age 43. Right ovary removed at age 43. Hysterectomy at age 43. Postmenopausal. 07/13/2022, Benign US biopsy breast VAD RT on the right side. Risk Values: Mignon 5 year model risk: 2.5%. NCI Lifetime model risk: 7.6%. Prior Study Comparison: 06/13/2022 Bilateral MG 3D screening mammo w/cad, [facility]. 06/18/2022 Right MG 3D work up w/cad RT, [facility]. 07/13/2022 Right MG diagnostic mammo RT wo CAD, [facility]. Tissue Density: The breast tissue is almost entirely fat. Findings: Analyzed By CAD. Right breast biopsy clip. There is no suspicious group of microcalcifications or new suspicious mass in either breast. Overall Assessment: Benign, BI-RAD 2 Management: Screening Mammogram of both breasts in [address] [facility] will attempt to contact patient to return for supplemental views and ultrasound if indicated. Patient should continue monthly self-breast exams. A clinical breast exam by your physician is recommended on an annual basis. This exam should not preclude additional follow-up of suspicious palpable abnormalities. Note on Mignon scores and lifetime risk: 1. A Mignon score greater than 3% is considered moderate risk. If this is the case, consider specialist referral to assess eligibility for a risk reducing agent. 2. If overall lifetime risk for the development of breast cancer is 20% or higher, the patient may qualify for future screening with alternating mammogram and breast MRI. Electronically signed and approved by: Vern Uribe DO
== END | disposition home or self-care (01) ==
LOC: RADMAMWWP 09:33
PROVIDERS: ATTEND Surgery
DX: Z12.31 Encounter for screening mammogram for malignant neoplasm of breast (principal); Z78.0 Asymptomatic menopausal state
CPT/HCPCS: 77063; 77067

== ENCOUNTER → 2023-06-28 | Outpatient (CLI) | payer MEDICARE ==
[2023-06-28 08:30] VITALS: BP 172/96; PULSE 80; RESP 17; TEMP 98.7
--- NOTE | 2023-06-28 09:15 | P.PN ---
Subjective Progress Note Date: 06/28/23 Principal diagnosis: sarcoid Subjective Progress Note Date: 06-28-23 Principal diagnosis: sarcoid [place] is a 67 year old white female seen in consultation for Dr. Raphael regarding a radiographic abnormality in the right breast. She had a bilateral mammogram on 06-14-22 showing a focal area of concern at 4 o clock in the right breast. Ultrasound was done on 06-18-22 showing a 1.5 cm nodular density for which biopsy was recommended. patient does not feel any lumps masses or nodules of concern in either breast. she is not complaining of any nipple discharge or skin changes. She has not had any recent trauma or infection of the breast. She has an intermittent boil between her breast and pus drains from this site. She has never had any surgery on her breast. She had an ultrasound guided core biopsy of the right breast on 07-13-22 which was benign concordant showing noncaseating granulomas of the breast. The patient does not feel any new lumps masses or nodules of concern in either breast. She is not complaining of any nipple discharge or skin changes. She was recently seen by her glass forming crew member on 12-14-22 he suggested that she have a needle localization and resection of the area of noncaseating granuloma in the breast. She underwent a right breast ultrasound in which was felt to be benign BIRADS 2. Her Mignon 5 year risk is 2.5%. We have discussed hormone of risk reduction at this time she is declined. 06-28-23 Bilateral mammogram on 06-24-23 BIRAD 2 She does not complain of any lumps masses or nodules of concern in either breast. After the biopsy of the noncaseating granuloma of the breast it was decided that she would be followed conservatively. The sarcoidoises is quiescent at this time. Her glass forming crew member would like us to remove the area of concern in the right breast. She was most recently seen by pulmonology last week. Caffeine: none nicotine: none; stopped 1979 chocolate: one time a week BCP: used them for about 6 years stopped in 1978 Hormonal history: Menarche: 10 , breast fed: no, age at : 25 menopause: hysterectomy at 39; took her ovaries; done for bleeding no cancer Family history: mother: colon cancer father: prostate cancer Maternal uncle: Pancreatic cancer Paternal uncle: Liver cancer Surgical history: Total abdominal hysterectomy/bilateral salpingo-oophorectomy Colonoscopy Mediastinoscopy: sarcoidosis gallbladder cerebral angiogram every two years a CTA done eye stints for glucoma Medical History: HTN sarcoidosis Social History: nicotine: stopped 1979/ only occasional at the time alcohol: none drugs: none - Constitutional Constitutional: Denies chills, Denies fever - EENT Eyes: denies blurred vision, denies pain Ears: deny: decreased hearing, tinnitus Ears, nose, mouth and throat: Reports headache, Denies sore throat - Breasts Breasts: bilateral: as per HPI - Cardiovascular Cardiovascular: Denies chest pain, Denies shortness of breath - Respiratory Respiratory: Denies cough - Gastrointestinal Comment: IBS Gastrointestinal: Denies abdominal pain, Denies diarrhea, Denies nausea, Denies vomiting - Genitourinary (Female) Genitourinary: Denies dysuria, Denies hematuria - Menstruation Menstruation: Reports post hysterectomy - Musculoskeletal Musculoskeletal: Denies myalgias - Integumentary Integumentary: Denies pruritus, Denies rash - Neurological Neurological: Denies numbness, Denies weakness - Psychiatric Psychiatric: Denies anxiety, Denies depression - Endocrine Endocrine: Denies fatigue, Denies weight change - Hematologic/Lymphatic Comment: none - Allergic/Immunologic Allergic/Immunologic: Reports as per HPI Past Medical History Past Medical History: Eye Disorder, GERD/Reflux, Hypertension Additional Past Medical History / Comment(s): Glaucoma negrita eyes, Sarcoidosis, migraines, IBS. 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 History of Any Multi-Drug Resistant Organisms: None Reported Past Surgical History: Cholecystectomy, Hysterectomy Additional Past Surgical History / Comment(s): Mediastinoscopy. DARLYN/BSO in 1997. Cerebral angiogram, RIGHT EYE-CATARACT SURGERY, eye stents for glaucoma. Colonoscopy EGD 2019(next after 5yr). Past Anesthesia/Blood Transfusion Reactions: No Reported Reaction Past Psychological History: No Psychological Hx Reported Smoking Status: Former smoker Past Alcohol Use History: None Reported Additional Past Alcohol Use History / Comment(s): quit smoking 1979, smoked for 4 yrs 5 CIG A WEEK Past Drug Use History: None Reported - Past Family History Mother Family Medical History: Cancer Additional Family Medical History / Comment(s): Colon cancer. Sister(s) Family Medical History: Diabetes Mellitus Father Family Medical History: Cancer Additional Family Medical History / Comment(s): Prostate,bladder Brother(s) Family Medical History: Cancer Additional Family Medical History / Comment(s): Prostate cancer. Medications and Allergies Home Medications Medication Instructions Recorded Confirmed Type Aspirin 81 mg PO DAILY 05/19/14 06/19/22 History Metoprolol Succinate (ER) [Toprol 100 mg PO DAILY 05/19/14 06/19/22 History XL] Omeprazole [PriLOSEC] 20 mg PO AC-BRKFST 05/19/14 06/19/22 History Losartan Potassium 50 mg PO DAILY 03/11/19 06/19/22 History Multivitamins, Thera [Multivitamin 1 tab PO HS 04/03/21 06/19/22 History (formulary)] Cholecalciferol [Vitamin D3 (25 50 mcg PO DAILY 05/10/21 06/19/22 History Mcg = 1000 Iu)] Latanoprost/Pf [Latanoprost 0.005% 1 drop BOTH EYES HS 06/19/22 06/19/22 History Eye Drop] Allergies Allergy/AdvReac Type Severity Reaction Status Date / Time levofloxacin [From Levaquin] Allergy headache Verified 07/12/22 15:12 meperidine HCl [From Demerol] Allergy Nausea Verified 07/12/22 15:12 Penicillins Allergy Rash/Hives Verified 07/12/22 15:12 Sulfa (Sulfonamide Allergy Rash/Hives Verified 07/12/22 15:12 Antibiotics) sulfamethoxazole Allergy Rash/Hives Verified 07/12/22 15:12 [From Bactrim] trimethoprim [From Bactrim] Allergy Rash/Hives Verified 07/12/22 15:12 erythromycin base AdvReac Abdominal Verified 07/12/22 15:12 Pain Objective - Vital Signs Vital signs: Vital Signs Temp 98.7 F 06/28/23 08:27 Pulse 80 06/28/23 08:27 Resp 17 06/28/23 08:27 BP 172/96 06/28/23 08:27 Pulse Ox 95 06/28/23 08:27 FiO2 Intake & Output 06/27/23 06/28/23 06/28/23 18:59 06:59 18:59 Weight 102.058 kg - Constitutional General appearance: Present: cooperative - EENT Eyes: Present: EOMI ENT: Present: hearing grossly normal - Neck Neck: Present: normal ROM - Respiratory Respiratory: bilateral: CTA - Cardiovascular Rhythm: regular Heart sounds: normal: S1, S2 - Gastrointestinal General gastrointestinal: Present: soft - Integumentary Integumentary: Present: normal turgor - Musculoskeletal Musculoskeletal: Present: gait normal - Psychiatric Psychiatric: Present: A&O x's 3, appropriate affect, intact judgment & insight - Additional findings Additional findings: Breast Exam: BRA: 42B Inspection: bilateral grade 3 ptosis Patient: Right breast: Multi-positional exam fibrocystic changes, no discrete dominant masses or nodules of concern Right axilla: No adenopathy of concern Left breast: Multi-positional exam fibrocystic changes no dominant masses or nodules of concern Left axilla: No adenopathy of concern Assessment and Plan Assessment: Impression: Bilateral fibrocystic breast changes Bilateral mammogram on 730 123 benign BIRADS 2 Right breast core biopsy in the past revealing noncaseating granuloma which may be consistent with sarcoidosis, Plan: Conservative management at this time Repeat bilateral mammogram in 1 year with examination at that time Follow-up in 6 months for physician exam Follow up sooner any questions or concerns I discussed with the patient resection of the noncaseating granuloma in the right breast and at this time we noticed benign it is not bothering her and she would like to forego surgical intervention if possible. Cc: Dr. Payne
== END ==
LOC: WWCWWP 08:15
PROVIDERS: ATTEND Surgery
DX: Z12.31 Encounter for screening mammogram for malignant neoplasm of breast (principal); N60.12 Diffuse cystic mastopathy of left breast; N60.11 Diffuse cystic mastopathy of right breast; I10 Essential (primary) hypertension; K21.9 Gastro-esophageal reflux disease without esophagitis; D86.9 Sarcoidosis, unspecified; K58.9 Irritable bowel syndrome, unspecified; Z87.891 Personal history of nicotine dependence; Z79.899 Other long term (current) drug therapy; Z88.1 Allergy status to other antibiotic agents; Z88.0 Allergy status to penicillin; Z88.2 Allergy status to sulfonamides; Z88.8 Allergy status to other drugs, medicaments and biological substances

== ENCOUNTER → 2023-12-11 | Outpatient (CLI) | payer MEDICARE ==
[2023-12-11 10:49] VITALS: BP 137/81; PULSE 70; RESP 17; TEMP 98.6
--- NOTE | 2023-12-11 11:24 | P.HPOB ---
History of Present Illness H&P Date: 12/11/23 Chief Complaint: The patient is here for her routine gynecologic exam. This is a 68-year-old with an LMP of 1998. She is status post DARLYN/BSO for benign reasons. She has a known small cystocele which she states it is not causing her any problems. She is without gynecologic complaints. However, she has noticed occasional burning or occasional small blood when wiping after a bowel movement. Review of Systems She is gained about 3 pounds over the past year. She denies respiratory or cardiac problems. GI: Occasional burning or small blood after wiping after a bowel movement. Also occasional difficulty with swallowing. She has seen Dr. Perdue for this in the past. And was planning on seeing her in the near future. Past Medical History Past Medical History: Eye Disorder, GERD/Reflux, Hypertension Additional Past Medical History / Comment(s): Glaucoma negrita eyes, Sarcoidosis, migraines, IBS. 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 History of Any Multi-Drug Resistant Organisms: None Reported Past Surgical History: Cholecystectomy, Hysterectomy Additional Past Surgical History / Comment(s): Mediastinoscopy. DARLYN/BSO in 1997. Cerebral angiogram, RIGHT EYE-CATARACT SURGERY, eye stents for glaucoma. Colonoscopy EGD 2019(next after 5yr). Past Anesthesia/Blood Transfusion Reactions: No Reported Reaction Past Psychological History: No Psychological Hx Reported (PHQ-2 questionaire was given and she scores 0. This is a negative screen for depression.) Smoking Status: Former smoker Past Alcohol Use History: None Reported Additional Past Alcohol Use History / Comment(s): quit smoking 1979, smoked for 4 yrs 5 CIG A WEEK Past Drug Use History: None Reported Additional History: She is single and is not sexually active. 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 - Past Family History Mother Family Medical History: Cancer Additional Family Medical History / Comment(s): Colon cancer. Sister(s) Family Medical History: Diabetes Mellitus Father Family Medical History: Cancer Additional Family Medical History / Comment(s): Prostate,bladder Brother(s) Family Medical History: Cancer Additional Family Medical History / Comment(s): Prostate cancer. Medications and Allergies Home Medications Medication Instructions Recorded Confirmed Type Aspirin 81 mg PO DAILY 05/19/14 12/11/23 History Metoprolol Succinate (ER) [Toprol 100 mg PO DAILY 05/19/14 12/11/23 History XL] Omeprazole [PriLOSEC] 20 mg PO AC-BRKFST 05/19/14 12/11/23 History Losartan Potassium 50 mg PO DAILY 03/11/19 12/11/23 History Multivitamins, Thera [Multivitamin 1 tab PO HS 04/03/21 12/11/23 History (formulary)] Cholecalciferol [Vitamin D3 (25 50 mcg PO DAILY 05/10/21 12/11/23 History Mcg = 1000 Iu)] Latanoprost/Pf [Latanoprost 0.005% 1 drop BOTH EYES HS 06/19/22 12/11/23 History Eye Drop] Allergies Allergy/AdvReac Type Severity Reaction Status Date / Time levofloxacin [From Levaquin] Allergy headache Verified 12/11/23 10:32 meperidine HCl [From Demerol] Allergy Nausea Verified 12/11/23 10:32 Penicillins Allergy Rash/Hives Verified 12/11/23 10:32 Sulfa (Sulfonamide Allergy Rash/Hives Verified 12/11/23 10:32 Antibiotics) sulfamethoxazole Allergy Rash/Hives Verified 12/11/23 10:32 [From Bactrim] trimethoprim [From Bactrim] Allergy Rash/Hives Verified 12/11/23 10:32 erythromycin base AdvReac Abdominal Verified 12/11/23 10:32 Pain Exam Vital Signs Temp Pulse Resp BP Pulse Ox 12/11/23 10:33 98.6 F 70 17 137/81 98 Intake and Output 12/10/23 12/11/23 12/11/23 22:59 06:59 14:59 Other: Weight 105.233 kg Height 5 feet 3 inches, weight 232 pounds, BMI 41.1. This is a well-developed well-nourished heavyset white female who is alert and oriented times 3 in no acute distress. HEENT: Within normal limits. NECK: Supple without mass or thyromegaly. CHEST AND LUNGS: Clear to auscultation. HEART: Regular rate and rhythm. BREASTS: Are without mass or discharge. AXILLARY EXAM: Negative for adenopathy. BACK: Negative for CVA tenderness. ABDOMEN: Soft, nontender, without palpable masses. PELVIC EXAM: External genitalia appears normal with mild atrophy. Vagina appears normal with mild atrophy. There is a stable grade 2 cystocele. The overlying mucosa is without ulceration, thickening or excoriation. Bimanual examination is negative for mass or tenderness. RECTAL EXAM: Rectovaginal exam is negative for mass or tenderness and is positive for occult blood. There is also mild erythema noted on the skin around the anus. EXTREMITIES: Nontender. IMPRESSION: 1. 68-year-old menopausal female with normal gynecologic exam. 2. Perianal irritation with occasional blood noted with wiping after a bowel movement. There is also heme-positive stool noted from the rectal examination. PLAN: 1. Pap smears have been discontinued. 2. Self breast awareness was discussed with the patient. We have also discussed symptoms associated with inflammatory breast cancer. 3. Screening mammogram will be due in late May of this year. She also has an appointment to see Dr. Jose Villagomez who has been seeing her since her benign breast biopsy. She plans to get the order slip for the mammogram from Dr. Jose Cook. 4. Kenalog 0.1% cream twice a day as needed for perianal skin irritation. The electronic prescription will be sent to [facility] pharmacy on [address] [facility]. 5. 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 She will let her know about the blood noted with wiping after bowel movements as well as the heme positive testing on today's exam. She understands she should be evaluated for the blood noted and she states she was already going to be due for a colonoscopy this year as well. She assures me that she will see Dr. Perdue for this. 6.Osteoporosis prevention was discussed. I have stressed the importance of adequate calcium, vitamin D and regular exercise. Recommended amounts of calcium and vitamin D were also discussed. She last had a normal bone density test on 03/30/2019. I recommended repeating the bone density test this year and the order slip was given to the patient for this. 7. She was advised to return in one year for her annual well woman exam.
== END ==
LOC: WWCWWP 10:16
PROVIDERS: ATTEND Obstetrics & Gynecology
DX: D86.9 Sarcoidosis, unspecified (principal); I10 Essential (primary) hypertension; K21.9 Gastro-esophageal reflux disease without esophagitis; K58.9 Irritable bowel syndrome, unspecified; Z87.891 Personal history of nicotine dependence; Z88.0 Allergy status to penicillin; Z88.1 Allergy status to other antibiotic agents; Z88.2 Allergy status to sulfonamides; Z88.5 Allergy status to narcotic agent; Z90.49 Acquired absence of other specified parts of digestive tract; Z90.710 Acquired absence of both cervix and uterus; Z90.722 Acquired absence of ovaries, bilateral; Z78.0 Asymptomatic menopausal state; Z86.69 Personal history of other diseases of the nervous system and sense organs; Z91.048 Other nonmedicinal substance allergy status; Z79.82 Long term (current) use of aspirin; Z79.899 Other long term (current) drug therapy

== ENCOUNTER → 2023-12-13 | Outpatient (CLI) | payer MEDICARE ==
--- NOTE | 2023-12-13 18:09 | BD ---
EXAMINATION TYPE: Axial Bone Density DATE OF EXAM: 12/13/2023 CLINICAL HISTORY: 68 years old Female. ICD-10 CODE: Z78.0 POSTMENOPAUSAL Height: 61.2 Weight: 226 FRAX RISK QUESTIONS: Glucocorticoids (More than 3mos): periodically with illness and pain (Ex: prednisone, prednisolone, methylprednisolone, dexamethasone, and hydrocortisone). Secondary Osteoporosis: yes 3. Menopause before 45: yes, at 43 yrs old RISK FACTORS HISTORY OF: nothing to note here MEDICATIONS: nothing to note here EXAM MEASUREMENTS: Bone mineral densitometry was performed using the [employer] System. Bone mineral density as measured about the Lumbar spine is: ----- L1-L4(G/cm2): 1.258 T Score Values are as follows: ----- L1: 0.0 ----- L2: 0.4 ----- L3: 0.8 ----- L4: 1.1 ----- L1-L4: 0.6 Z Score Values are as follows: ----- L1: 0.5 ----- L2: 0.9 ----- L3: 1.3 ----- L4: 1.6 ----- L1-L4: 1.1 Bone mineral density has: Decreased -1.4% since study of: 03.30.2019 Bone mineral density about the R hip (g/cm2): 0.948 Bone mineral density about the L hip (g/cm2): 1.118 T Score values are as follows: -----R Neck: -1.5 -----L Neck: -0.3 -----R Total: -0.5 -----L Total: 0.9 Z Score values are as follows: -----R Neck: - 0.6 -----L Neck: 0.6 -----R Total: 0.1 -----L Total: 1.5 Bone mineral density has: Increased 2.0% since study of: 03.30.2019 FRAX%s: The graph provided illustrates a 8.5% chance for a major osteoporotic fx and a 1.1% chance fo r the hips probability for fx in 10 years time. IMPRESSION: Osteopenia (T Score between -2.5 and -1). There is slightly increased risk of fracture and the patient may be considered for treatment. Re-Screen 2-5 years. NOTE: T-SCORE=SD OF THE YOUNG ADULT MEAN.
--- NOTE | 2023-12-17 09:20 | P.PN ---
Progress Note - Text Progress Note Date: 12/17/23 OUTPATIENT FOLLOW-UP NOTE TEST(S)/RESULTS: Bone density test done on 12/11/2023 shows osteopenia. METHOD OF NOTIFICATION: The patient was notified by phone on 12/17/2023. PATIENT COMMENTS: The patient has made an appointment to see Dr. Perdue regarding the blood per rectum. DIAGNOSIS: Osteopenia. DISCUSSION: I have stressed the importance of adequate calcium, vitamin D, and regular exercise. We will plan on repeating the bone density test in 2-3 years. PLAN: As above.
== END | disposition home or self-care (01) ==
LOC: RADBDWWP 06:50
PROVIDERS: ATTEND Obstetrics & Gynecology
DX: M85.851 Other specified disorders of bone density and structure, right thigh (principal); Z78.0 Asymptomatic menopausal state
CPT/HCPCS: 77080

== ENCOUNTER → 2024-01-03 | Outpatient (CLI) | payer MEDICARE ==
--- NOTE | 2024-01-03 12:34 | P.PN ---
Subjective Progress Note Date: 01/03/24 cristiana Elaine is a 67 year old white female seen in consultation for Dr. Raphael regarding a radiographic abnormality in the right breast. She had a bilateral mammogram on 06-14-22 showing a focal area of concern at 4 o clock in the right breast. Ultrasound was done on 06-18-22 showing a 1.5 cm nodular density for which biopsy was recommended. patient does not feel any lumps masses or nodules of concern in either breast. she is not complaining of any nipple discharge or skin changes. She has not had any recent trauma or infection of the breast. She has an intermittent boil between her breast and pus drains from this site. She has never had any surgery on her breast. She had an ultrasound guided core biopsy of the right breast on 07-13-22 which was benign concordant showing noncaseating granulomas of the breast. The patient does not feel any new lumps masses or nodules of concern in either br east. She is not complaining of any nipple discharge or skin changes. She was recently seen by her accounting professor on 12-14-22 he suggested that she have a needle localization and resection of the area of noncaseating granuloma in the breast. She underwent a right breast ultrasound in which was felt to be benign BIRADS 2. Her Mignon 5 year risk is 2.5%. We have discussed chemoprophylaxis risk reduction at this time she is declined. 06-28-23 Bilateral mammogram on 06-24-23 BIRAD 2 She does not complain of any lumps masses or nodules of concern in either breast. After the biopsy of the noncaseating granuloma of the breast it was decided that she would be followed conservatively. The sarcoidoises is quiescent at this time. Her accounting professor would like us to remove the area of concern in the right breast. She was most recently seen by pulmonology last week. 01-03-24 The patient is not complaining of any new lumps masses or nodules of concern in either breast at this time. She underwent an ultrasound-guided core biopsy of the right breast on 07-13-2022 which was benign concordant showing noncaseating granuloma of the breast. We have been following her conservatively since that time. At that time after conversation she opted to forego resection in the operating room of the area. Caffeine: none nicotine: none; stopped 1979 chocolate: one time a week BCP: used them for about 6 years stopped in 1978 Hormonal history: Menarche: 10 , breast fed: no, age at : 25 menopause: hysterectomy at 39; took her ovaries; done for bleeding no cancer Family history: mother: colon cancer father: prostate cancer Maternal uncle: Pancreatic cancer Paternal uncle: Liver cancer Surgical history: Total abdominal hysterectomy/bilateral salpingo-oophorectomy Colonoscopy Mediastinoscopy: sarcoidosis gallbladder cerebral angiogram every two years a CTA done eye stints for glucoma Medical History: HTN sarcoidosis Social History: nicotine: stopped 1979/ only occasional at the time alcohol: none drugs: none - Constitutional Constitutional: Denies chills, Denies fever - EENT Eyes: denies blurred vision, denies pain Ears: deny: decreased hearing, tinnitus Ears, nose, mouth and throat: Reports headache, Denies sore throat - Breasts Breasts: bilateral: as per HPI - Cardiovascular Cardiovascular: Denies chest pain, Denies shortness of breath - Respiratory Respiratory: Denies cough - Gastrointestinal Comment: IBS Gastrointestinal: Denies abdominal pain, Denies diarrhea, Denies nausea, Denies vomiting - Genitourinary (Female) Genitourinary: Denies dysuria, Denies hematuria - Menstruation Menstruation: Reports post hysterectomy - Musculoskeletal Musculoskeletal: Denies myalgias - Integumentary Integumentary: Denies pruritus, Denies rash - Neurological Neurological: Denies numbness, Denies weakness - Psychiatric Psychiatric: Denies anxiety, Denies depression - Endocrine Endocrine: Denies fatigue, Denies weight change - Hematologic/Lymphatic Comment: none - Allergic/Immunologic Allergic/Immunologic: Reports as per HPI Past Medical History Past Medical History: Eye Disorder, GERD/Reflux, Hypertension Additional Past Medical History / Comment(s): Glaucoma negrita eyes, Sarcoidosis, migraines, IBS. 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 History of Any Multi-Drug Resistant Organisms: None Reported Past Surgical History: Cholecystectomy, Hysterectomy Additional Past Surgical History / Comment(s): Mediastinoscopy. DARLYN/BSO in 1997. Cerebral angiogram, RIGHT EYE-CATARACT SURGERY, eye stents for glaucoma. Colonoscopy EGD 2019(next after 5yr). Past Anesthesia/Blood Transfusion Reactions: No Reported Reaction Past Psychological History: No Psychological Hx Reported Smoking Status: Former smoker Past Alcohol Use History: None Reported Additional Past Alcohol Use History / Comment(s): quit smoking 1979, smoked for 4 yrs 5 CIG A WEEK Past Drug Use History: None Reported - Past Family History Mother Family Medical History: Cancer Additional Family Medical History / Comment(s): Colon cancer. Sister(s) Family Medical History: Diabetes Mellitus Father Family Medical History: Cancer Additional Family Medical History / Comment(s): Prostate,bladder Brother(s) Family Medical History: Cancer Additional Family Medical History / Comment(s): Prostate cancer. Medications and Allergies Home Medications Medication Instructions Recorded Confirmed Type Aspirin 81 mg PO DAILY 05/19/14 06/19/22 History Metoprolol Succinate (ER) [Toprol 100 mg PO DAILY 05/19/14 06/19/22 History XL] Omeprazole [PriLOSEC] 20 mg PO AC-BRKFST 05/19/14 06/19/22 History Losartan Potassium 50 mg PO DAILY 03/11/19 06/19/22 History Multivitamins, Thera [Multivitamin 1 tab PO HS 04/03/21 06/19/22 History (formulary)] Cholecalciferol [Vitamin D3 (25 50 mcg PO DAILY 05/10/21 06/19/22 History Mcg = 1000 Iu)] Latanoprost/Pf [Latanoprost 0.005% 1 drop BOTH EYES HS 06/19/22 06/19/22 History Eye Drop] Allergies Allergy/AdvReac Type Severity Reaction Status Date / Time levofloxacin [From Levaquin] Allergy headache Verified 07/12/22 15:12 meperidine HCl [From Demerol] Allergy Nausea Verified 07/12/22 15:12 Penicillins Allergy Rash/Hives Verified 07/12/22 15:12 Sulfa (Sulfonamide Allergy Rash/Hives Verified 07/12/22 15:12 Antibiotics) sulfamethoxazole Allergy Rash/Hives Verified 07/12/22 15:12 [From Bactrim] trimethoprim [From Bactrim] Allergy Rash/Hives Verified 07/12/22 15:12 erythromycin base AdvReac Abdominal Verified 07/12/22 15:12 Pain Objective - Vital Signs Vital signs: Vital Signs Temp 98 F 01/03/24 12:19 Pulse 75 01/03/24 12:19 Resp 16 01/03/24 12:19 BP 147/78 01/03/24 12:19 Pulse Ox 95 01/03/24 12:19 FiO2 Intake & Output 01/02/24 01/03/24 01/03/24 18:59 06:59 18:59 Weight 101.605 kg - Constitutional General appearance: Present: cooperative - EENT Eyes: Present: EOMI ENT: Present: hearing grossly normal - Neck Neck: Present: normal ROM - Respiratory Respiratory: bilateral: CTA - Cardiovascular Heart sounds: normal: S1, S2 - Integumentary Integumentary: Present: normal turgor - Musculoskeletal Musculoskeletal: Present: gait normal - Psychiatric Psychiatric: Present: A&O x's 3, appropriate affect, intact judgment & insight - Additional findings Additional findings: Breast Exam: BRA: 42B Inspection: bilateral grade 3 ptosis Patient: Right breast: Multi-positional exam fibrocystic changes, no discrete dominant masses or nodules of concern Right axilla: No adenopathy of concern Left breast: Multi-positional exam fibrocystic changes no dominant masses or nodules of concern Left axilla: No adenopathy of concern Assessment and Plan Assessment: Impression: Bilateral fibrocystic [place] [id number] benign BIRADS 2 Right breast core biopsy in the past revealing noncaseating granuloma which may be consistent with sarcoidosis Plan: Conservative management at this time Repeat bilateral mammogram in May 2024 with physician exam at that time Follow up sooner any questions or concerns I discussed with the patient resection of the noncaseating granuloma in the right breast and at this time it is benign it is not bothering her and she would like to forego surgical intervention if possible. Cc: Dr. Payne
[2024-01-03 12:37] VITALS: BP 147/78; PULSE 75; RESP 16; TEMP 98
== END ==
LOC: WWCWWP 11:13
PROVIDERS: ATTEND Surgery
DX: R92.8 Other abnormal and inconclusive findings on diagnostic imaging of breast (principal); N60.11 Diffuse cystic mastopathy of right breast; N60.12 Diffuse cystic mastopathy of left breast; I10 Essential (primary) hypertension; K21.9 Gastro-esophageal reflux disease without esophagitis; K58.9 Irritable bowel syndrome, unspecified; G43.909 Migraine, unspecified, not intractable, without status migrainosus; H40.9 Unspecified glaucoma; Z87.09 Personal history of other diseases of the respiratory system; Z87.891 Personal history of nicotine dependence; Z88.5 Allergy status to narcotic agent; Z88.1 Allergy status to other antibiotic agents; Z83.3 Family history of diabetes mellitus; Z88.2 Allergy status to sulfonamides; Z88.0 Allergy status to penicillin; Z88.8 Allergy status to other drugs, medicaments and biological substances; Z79.82 Long term (current) use of aspirin; Z79.899 Other long term (current) drug therapy

== ENCOUNTER 2024-02-05 06:11 | Day surgery (SDC) | payer MEDICARE ==
[2024-02-03 15:14] VITALS: BMI 39.6
[2024-02-05] MEDS ORDERED: LIDOCAINE 1% (10MG/ML) FOR IV START INTRADERMA PRN (06:39)
[2024-02-05 07:01] VITALS: TEMP 98.2
[2024-02-05] MEDS: LACTATED RINGERS 1,000 ML IV SCH (07:05)
[2024-02-05] MEDS ORDERED: PROPOFOL 10 MG/ML 20 ML VIAL IV ONE (07:24)
[2024-02-05] MEDS ORDERED: LIDOCAINE 2% (PF) 20 MG/ML 5 ML VIAL ONE (07:24)
--- NOTE | 2024-02-05 07:47 | P.PCN ---
Date of Procedure: 02/05/24 Procedure(s) Performed: Brief history: Patient is a pleasant 68-year-old white female scheduled for an elective upper endoscopy as well as colonoscopy as a part of evaluation of GERD and screening for colon cancer. Her mother was diagnosed with colon cancer at age 72. Procedure performed: Esophagogastroduodenoscopy with biopsy Colonoscopy Preoperative diagnosis: GERD Screening for colon cancer/family history of colon cancer Anesthesia: MAC Procedure: After informed consent was obtained from the patient was brought into the endoscopy unit and IV sedation was administered by anesthesia under continuous monitoring. Initially upper endoscopy was done. The Olympus GF 160 video endoscope was inserted inserted into the mouth and esophagus intubated without any difficulty and was gradually advanced into the stomach and duodenum and carefully examined. The bulb and second part of the duodenum appeared normal. The scope was then withdrawn into the stomach adequately insufflated with air and upon careful examination the antrum had mild gastritis and biopsies were done from this area. The body, cardia and fundus appeared normal. The scope was then withdrawn into the esophagus. Small hiatal hernia noted. The GE junction was located at 40 cm to the incisors. It appeared regular with no erythema erosions or ulcerations. Rest of the esophagus appeared normal. Patient tolerated the procedure well. At this time the patient continued to remain sedation. Initial digital rectal examination was normal. Olympus CF 160 video colonoscope was then inserted into the rectum and gradually advanced to the cecum without any difficulty. Careful examination was performed as the scope was gradually being withdrawn. The prep was excellent. The cecum, ascending colon, transverse colon, descending colon, sigmoid colon and rectum appeared normal. Retroflexion was performed in the rectum and grade 2 internal hemorrhoids were noted. Patient tolerated the procedure well. Impression: 1. Upper endoscopy revealed small hiatal hernia and mild antral gastritis 2. Colonoscopy revealed small internal hemorrhoids but no evidence of colorectal neoplasia Recommendations: Findings of this examination were discussed with the patient as well as her family. She was advised to follow with the biopsy results. Continue with omeprazole 20 mg daily and follow antireflux measures. Recommend repeat screening colonoscopy in 5 years because of the family history of colon cancer.
[2024-02-05 08:12] VITALS: BP 110/69; PULSE 65; RESP 16
== END 2024-02-05 08:39 | disposition home or self-care (01) ==
LOC: ORWHC2ENDO 06:11
PROVIDERS: ATTEND Internal Medicine Gastroenterology
DX: Z12.11 Encounter for screening for malignant neoplasm of colon (principal); K29.50 Unspecified chronic gastritis without bleeding; K44.9 Diaphragmatic hernia without obstruction or gangrene; K64.8 Other hemorrhoids; K21.9 Gastro-esophageal reflux disease without esophagitis; I10 Essential (primary) hypertension; Z79.82 Long term (current) use of aspirin; Z80.0 Family history of malignant neoplasm of digestive organs; Z79.899 Other long term (current) drug therapy; Z90.49 Acquired absence of other specified parts of digestive tract; Z88.2 Allergy status to sulfonamides; Z88.0 Allergy status to penicillin; Z88.1 Allergy status to other antibiotic agents; Z88.8 Allergy status to other drugs, medicaments and biological substances
CPT/HCPCS: 88305; 43239; J2704; J2001; G0105

== ENCOUNTER → 2024-06-20 | Outpatient (CLI) | payer MEDICARE ==
[2024-06-20 13:17] LABS: Basophils # (A) 0.07 X 10*3/uL (0.00-0.10); Basophils % (A) 1.3 %; Eosinophils # (A) 0.41 X 10*3/uL (0.04-0.35); Eosinophils % (A) 7.5 %; HGB 14.5 g/dL (12.0-15.0); Lymphocytes # (A) 0.52 X 10*3/uL (0.90-5.00); Lymphocytes % (A) 9.5 %; MCH 30.3 pg (27.0-32.0); MCV 91.9 FL (80.0-97.0); Mean Platelet Volume 11.7 FL (9.5-12.2); Monocytes # (A) 0.75 X 10*3/uL (0.20-1.00); Monocytes % (A) 13.7 %; NRBC Per 100 WBC 0 X 10*3/uL (0.00-0.01); Neutrophils # (A) 3.72 X 10*3/uL (1.80-7.70); Neutrophils % (A) 67.6 %; Platelet Count 204 X 10*3/uL (140-440); RBC 4.79 X 10*6/uL (4.10-5.20); RDW 12.7 % (11.5-14.5); WBC 5.49 X 10*3/uL (4.50-10.00)
[2024-06-20 13:47] LABS: ALT 22 U/L (8-44); AST 36 U/L (13-35); Albumin 4.4 g/dL (3.8-4.9); Albumin/Globulin Ratio 1.63 Ratio (1.60-3.17); Alkaline Phosphatase 132 U/L (41-126); Blood Urea Nitrogen 13.9 mg/dL (9.0-27.0); Calcium 9.6 mg/dL (8.7-10.3); Carbon Dioxide 24.3 mmol/L (21.6-31.8); Chloride 104 mmol/L (96-109); Globulin 2.7 g/dL (1.6-3.3); Glucose 103 mg/dL (70-110); LDL Cholesterol,Calculated 89.6 mg/dL (0.0-131.0); Potassium 4.2 mmol/L (3.5-5.5); Sodium 141 mmol/L (135-145); T4, Free (Free Thyroxine) 1.32 ng/dL (0.80-1.80); Total Bilirubin 0.8 mg/dL (0.3-1.2); Total Protein 7.1 g/dL (6.2-8.2)
== END | disposition home or self-care (01) ==
LOC: LABWHC1 08:17
PROVIDERS: ATTEND Internal Medicine
DX: I10 Essential (primary) hypertension (principal); E78.5 Hyperlipidemia, unspecified; E55.9 Vitamin D deficiency, unspecified; D86.9 Sarcoidosis, unspecified
CPT/HCPCS: 36415; 80053; 80061; 82164; 82306; 84439; 84443; 85025

== ENCOUNTER → 2024-06-25 | Outpatient (CLI) | payer MEDICARE ==
--- NOTE | 2024-07-21 12:16 | MM ---
Reason for Exam: Screening (asymptomatic). Last mammogram was performed 1 year(s) and 1 month(s) ago. Patient History: Menarche at age 10. First Full-Term at age 25. Left ovary removed at age 43. Right ovary removed at age 43. Hysterectomy at age 43. Postmenopausal. 07/13/2022, Benign US biopsy breast VAD RT on the right side. Risk Values: Mignon 5 year model risk: 2.5%. NCI Lifetime model risk: 7.2%. Prior Study Comparison: 12/06/2017 Bilateral Screening Mammogram, [facility]. 12/31/2018 Bilateral Screening Mammogram, [facility]. 04/19/2020 Bilateral Screening Mammogram, [facility]. 05/10/2021 Bilateral Screening Mammogram, [facility]. 06/13/2022 Bilateral MG 3D screening mammo w/cad, [facility]. 06/18/2022 Right MG 3D work up w/cad RT, [facility]. 07/13/2022 Right MG diagnostic mammo RT wo CAD, [facility]. 06/24/2023 Bilateral MG 3D screening mammo w/cad, [facility]. Tissue Density: The breasts are almost entirely fatty. Findings: Analyzed By CAD. There is no suspicious group of microcalcifications or new suspicious mass in either breast. Overall Assessment: Negative, BI-RAD 1 Management: Screening Mammogram of both breasts in 1 year. Patient should continue monthly self-breast exams. A clinical breast exam by your physician is recommended on an annual basis. This exam should not preclude additional follow-up of suspicious palpable abnormalities. Note on Mignon scores and lifetime risk: 1. A Mignon score greater than 3% is considered moderate risk. If this is the case, consider specialist referral to assess eligibility for a risk reducing agent. 2. If overall lifetime risk for the development of breast cancer is 20% or higher, the patient may qualify for future screening with alternating mammogram and breast MRI. Electronically signed and approved by: Oc Nava M.D. Radiologis
== END | disposition home or self-care (01) ==
LOC: RADMAMWWP 09:07
PROVIDERS: ATTEND Surgery
DX: Z12.31 Encounter for screening mammogram for malignant neoplasm of breast (principal); Z78.0 Asymptomatic menopausal state; Z90.721 Acquired absence of ovaries, unilateral
CPT/HCPCS: 77063; 77067

== ENCOUNTER → 2024-07-31 | Outpatient (CLI) | payer MEDICARE ==
[2024-07-31 12:29] VITALS: BP 142/83; PULSE 94; RESP 18; TEMP 98
--- NOTE | 2024-07-31 12:36 | P.PN ---
Subjective Progress Note Date: 07/31/24 Principal diagnosis: fibrocystic breast changes 01/03/24 cristiana Elaine is a 67 year old white female seen in consultation for Dr. Raphael regarding a radiographic abnormality in the right breast. She had a bilateral mammogram on 06-14-22 showing a focal area of concern at 4 o clock in the right breast. Ultrasound was done on 06-18-22 showing a 1.5 cm nodular density for which biopsy was recommended. patient does not feel any lumps masses or nodules of concern in either breast. she is not complaining of any nipple discharge or skin changes. She has not had any recent trauma or infection of the breast. She has an intermittent boil between her breast and pus drains from this site. She has never had any surgery on her breast. She had an ultrasound guided core biopsy of the right breast on 07-13-22 which was benign concordant showing noncaseating granulomas of the breast. The patient does not feel any new lumps masses or nodules of concern in either breast. She is not complaining of any nipple discharge or skin changes. She was recently seen by her pension adviser on 12-14-22 he suggested that she have a needle localization and resection of the area of noncaseating granuloma in the breast. She underwent a right breast ultrasound in which was felt to be benign BIRADS 2. Her Mignon 5 year risk is 2.5%. We have discussed chemoprophylaxis risk reduction at this time she is declined. 06-28-23 Bilateral mammogram on 06-24-23 BIRAD 2 She does not complain of any lumps masses or nodules of concern in either breast. After the biopsy of the noncaseating granuloma of the breast it was decided that she would be followed conservatively. The sarcoidoises is quiescent at this time. Her pension adviser would like us to remove the area of concern in the right breast. She was most recently seen by pulmonology last week. 01-03-24 The patient is not complaining of any new lumps masses or nodules of concern in either breast at this time. She underwent an ultrasound-guided core biopsy of the right breast on 07-13-2022 which was benign concordant showing noncaseating granuloma of the breast. We have been following her conservatively since that time. At that time after conversation she opted to forego resection in the operating room of the area. 07-31-24 Bilateral mammogram 06-25-24 personally interpreted BIRAD 1 She is not complaining of any new lumps masses or nodules of concern in either breast. Caffeine: none nicotine: none; stopped 1979 chocolate: one time a week BCP: used them for about 6 years stopped in 1978 Hormonal history: Menarche: 10 , breast fed: no, age at : 25 menopause: hysterectomy at 39; took her ovaries; done for bleeding no cancer Family history: mother: colon cancer father: prostate cancer Maternal uncle: Pancreatic cancer Paternal uncle: Liver cancer Surgical history: Total abdominal hysterectomy/bilateral salpingo-oophorectomy Colonoscopy Mediastinoscopy: sarcoidosis gallbladder cerebral angiogram every two years a CTA done eye stints for glucoma Medical History: HTN sarcoidosis Social History: nicotine: stopped 1979/ only occasional at the time alcohol: none drugs: none - Constitutional Constitutional: Denies chills, Denies fever - EENT Eyes: denies blurred vision, denies pain Ears: deny: decreased hearing, tinnitus Ears, nose, mouth and throat: Reports headache, Denies sore throat - Breasts Breasts: bilateral: as per HPI - Cardiovascular Cardiovascular: Denies chest pain, Denies shortness of breath - Respiratory Respiratory: Denies cough - Gastrointestinal Comment: IBS Gastrointestinal: Denies abdominal pain, Denies diarrhea, Denies nausea, Denies vomiting - Genitourinary (Female) Genitourinary: Denies dysuria, Denies hematuria - Menstruation Menstruation: Reports post hysterectomy - Musculoskeletal Musculoskeletal: Denies myalgias - Integumentary Integumentary: Denies pruritus, Denies rash - Neurological Neurological: Denies numbness, Denies weakness - Psychiatric Psychiatric: Denies anxiety, Denies depression - Endocrine Endocrine: Denies fatigue, Denies weight change - Hematologic/Lymphatic Comment: none - Allergic/Immunologic Allergic/Immunologic: Reports as per HPI Past Medical History Past Medical History: Eye Disorder, GERD/Reflux, Hypertension Additional Past Medical History / Comment(s): Glaucoma negrita eyes, Sarcoidosis, m igraines, IBS. 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 History of Any Multi-Drug Resistant Organisms: None Reported Past Surgical History: Cholecystectomy, Hysterectomy Additional Past Surgical History / Comment(s): Mediastinoscopy. DARLYN/BSO in 1997. Cerebral angiogram, RIGHT EYE-CATARACT SURGERY, eye stents for glaucoma. Colonoscopy EGD 2019(next after 5yr). Past Anesthesia/Blood Transfusion Reactions: No Reported Reaction Past Psychological History: No Psychological Hx Reported Smoking Status: Former smoker Past Alcohol Use History: None Reported Additional Past Alcohol Use History / Comment(s): quit smoking 1979, smoked for 4 yrs 5 CIG A WEEK Past Drug Use History: None Reported - Past Family History Mother Family Medical History: Cancer Additional Family Medical History / Comment(s): Colon cancer. Sister(s) Family Medical History: Diabetes Mellitus Father Family Medical History: Cancer Additional Family Medical History / Comment(s): Prostate,bladder Brother(s) Family Medical History: Cancer Additional Family Medical History / Comment(s): Prostate cancer. Medications and Allergies Home Medications Medication Instructions Recorded Confirmed Type Aspirin 81 mg PO DAILY 05/19/14 06/19/22 History Metoprolol Succinate (ER) [Toprol 100 mg PO DAILY 05/19/14 06/19/22 History XL] Omeprazole [PriLOSEC] 20 mg PO AC-BRKFST 05/19/14 06/19/22 History Losartan Potassium 50 mg PO DAILY 03/11/19 06/19/22 History Multivitamins, Thera [Multivitamin 1 tab PO HS 04/03/21 06/19/22 History (formulary)] Cholecalciferol [Vitamin D3 (25 50 mcg PO DAILY 05/10/21 06/19/22 History Mcg = 1000 Iu)] Latanoprost/Pf [Latanoprost 0.005% 1 drop BOTH EYES HS 06/19/22 06/19/22 History Eye Drop] Allergies Allergy/AdvReac Type Severity Reaction Status Date / Time levofloxacin [From Levaquin] Allergy headache Verified 07/12/22 15:12 meperidine HCl [From Demerol] Allergy Nausea Verified 07/12/22 15:12 Penicillins Allergy Rash/Hives Verified 07/12/22 15:12 Sulfa (Sulfonamide Allergy Rash/Hives Verified 07/12/22 15:12 Antibiotics) sulfamethoxazole Allergy Rash/Hives Verified 07/12/22 15:12 [From Bactrim] trimethoprim [From Bactrim] Allergy Rash/Hives Verified 07/12/22 15:12 erythromycin base AdvReac Abdominal Verified 07/12/22 15:12 Pain Objective - Vital Signs Vital signs: Intake & Output 07/30/24 07/31/24 07/31/24 18:59 06:59 18:59 Weight 101.605 kg - Constitutional General appearance: Present: cooperative - EENT Eyes: Present: EOMI ENT: Present: hearing grossly normal - Neck Neck: Present: normal ROM - Respiratory Respiratory: bilateral: CTA - Cardiovascular Heart sounds: normal: S1, S2 - Integumentary Integumentary: Present: normal turgor - Musculoskeletal Musculoskeletal: Present: gait normal - Psychiatric Psychiatric: Present: A&O x's 3, appropriate affect, intact judgment & insight - Additional findings Additional findings: Breast Exam: BRA: 42B Inspection: bilateral grade 3 ptosis Patient: Right breast: Multi-positional exam fibrocystic changes, no discrete dominant masses or nodules of concern Right axilla: No adenopathy of concern Left breast: Multi-positional exam fibrocystic changes no dominant masses or nodules of concern Left axilla: No adenopathy of concern Appears to have erythematous/fungal infection in bilateral axilla Assessment and Plan Assessment: Impression: Bilateral fibrocystic breast changes Bilateral mammogram on 06-25-24 benign BIRADS 1 personally interpreted fungal infection bilateral axilla Right breast core biopsy in the past revealing noncaseating granuloma which may be consistent with sarcoidosis Plan: Conservative management at this time Repeat bilateral mammogram in June 2025 with physician exam at that time Follow up sooner any questions or concerns nystatin to affected areas of axillas Cc: Dr. Payne
== END ==
LOC: WWCWWP 11:36
PROVIDERS: ATTEND Surgery
DX: R92.8 Other abnormal and inconclusive findings on diagnostic imaging of breast (principal); N60.11 Diffuse cystic mastopathy of right breast; N60.12 Diffuse cystic mastopathy of left breast; Z87.891 Personal history of nicotine dependence; Z88.1 Allergy status to other antibiotic agents; Z88.0 Allergy status to penicillin; Z88.2 Allergy status to sulfonamides; Z88.5 Allergy status to narcotic agent

== ENCOUNTER → 2025-06-21 | Outpatient (CLI) | payer MEDICARE ==
[2025-06-21 15:18] LABS: Basophils # (A) 0.09 X 10*3/uL (0.00-0.10); Basophils % (A) 1.3 %; Eosinophils # (A) 0.44 X 10*3/uL (0.04-0.35); Eosinophils % (A) 6.4 %; HCT 43.0 % (37.2-46.3); HGB 14.2 g/dL (12.0-15.0); Immature Grans, Automated 0.40 %; Lymphocytes # (A) 0.73 X 10*3/uL (0.90-5.00); Lymphocytes % (A) 10.7 %; MCH 30.9 pg (27.0-32.0); MCHC 33.0 g/dL (32.0-37.0); MCV 93.5 FL (80.0-97.0); Monocytes # (A) 0.85 X 10*3/uL (0.20-1.00); Monocytes % (A) 12.4 %; NRBC Per 100 WBC 0 X 10*3/uL (0.00-0.01); Neutrophils # (A) 4.70 X 10*3/uL (1.80-7.70); Neutrophils % (A) 68.8 %; Platelet Count 193 X 10*3/uL (140-440); RBC 4.60 X 10*6/uL (4.10-5.20); RDW 12.9 % (11.5-14.5); WBC 6.84 X 10*3/uL (4.50-10.00)
[2025-06-21 15:43] LABS: ALT 23 U/L (8-44); AST 39 U/L (13-35); Albumin 4.2 g/dL (3.8-4.9); Albumin/Globulin Ratio 1.50 Ratio (1.60-3.17); Alkaline Phosphatase 128 U/L (41-126); Anion Gap 10.90 mmol/L (4.00-12.00); BUN/Creat Ratio 14.67 Ratio (12.00-20.00); Blood Urea Nitrogen 13.2 mg/dL (9.0-27.0); Calcium 9.5 mg/dL (8.7-10.3); Carbon Dioxide 25.1 mmol/L (21.6-31.8); Chloride 105 mmol/L (96-109); Cholesterol 163.00 mg/dL (0.00-200.00); Globulin 2.8 g/dL (1.6-3.3); Glucose 103 mg/dL (70-110); HDL Cholesterol 41.60 mg/dL (40.00-60.00); LDL Cholesterol,Calculated 99.4 mg/dL (0.0-131.0); Potassium 4.4 mmol/L (3.5-5.5); Sodium 141 mmol/L (135-145); T4, Free (Free Thyroxine) 1.29 ng/dL (0.80-1.80); Total Protein 7.0 g/dL (6.2-8.2); Triglycerides 110.00 mg/dL (0.00-149.00); VLDL Calculation 22.00 mg/dL (5.00-40.00)
== END | disposition home or self-care (01) ==
LOC: LABWHC1 09:11
PROVIDERS: ATTEND Internal Medicine
DX: I10 Essential (primary) hypertension (principal); E78.5 Hyperlipidemia, unspecified
CPT/HCPCS: 36415; 80053; 80061; 84439; 84443; 85025